=== PATIENT | male | born 1940 | race Caucasian/White ===

== ENCOUNTER 2022-07-02 17:10 | Inpatient (IN) | payer MEDICARE, SELFPAY ==
--- NOTE | ~2022-07-02 | CT_ITS ---
EXAMINATION: CTA brain carotid DATE: 07/02/2022 20:37 INDICATION: lateral gaze palsy, ?facial droop, weakness TECHNIQUE: Computed tomographic angiography (CTA) of the head was performed with 100 mL Omnipaque-350 intravenous contrast. Automated exposure control and iterative reconstruction technique were employe d. The dose-length product was 1233.20 mGy-cm. Maximum intensity projection and volume rendered 3D-re constructions were created by the technologist on a separate workstation. COMPARISON: CT brain, same date. FINDINGS: CTA HEAD: No large vessel occlusion, high flow vascular malformation, nidus or extravasation. 5 mm aneurysm at the anterior communicating artery. 14 mm homogenously enhancing peripherally calcified mass which peggy ears to displace adjacent vessels, projecting off the left sphenoid wing. Moderate stenosis of the le ft cavernous carotid. Mild stenosis in the right P2 segment. Patent cerebral veins. Hypoplastic left transverse sinus. Symmetric parenchymal enhancement. CTA NECK: Motion artifact in the neck which degrades image quality of the proximal internal carotid arteries. Aortic arch and proximal great vessels: Atherosclerotic calcifications at the visualized aortic arch and proximal great vessels. Right common carotid, carotid bifurcation, and internal carotid artery: Calcified plaque at the bifur cation.There is 0% stenosis of the proximal right internal carotid artery relative to normal distal a rtery lumen diameter (NASCET criteria). Left common carotid, carotid bifurcation, and internal carotid artery: Calcified plaque at the bifurc ation.There is 0% stenosis of the proximal left internal carotid artery relative to normal distal art puneet lumen diameter (NASCET criteria). Vertebral arteries: No significant plaque or stenosis. Other findings: None. IMPRESSION: 1. No large vessel occlusion. 2. No severe carotid or vertebral stenosis. 3. 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 4. 14 mm sphenoid wing mass, possible meningioma. Reviewed, dictated and finalized at location K.
--- NOTE | ~2022-07-02 | MR_ITS ---
EXAMINATION: MR brain/brain stem wo/w con DATE: 07/03/2022 12:42 INDICATION: Altered mental status TECHNIQUE: Magnetic resonance imaging (MRI) of the brain and brainstem was performed without and with 15 mL Multihance intravenous contrast. Sequences included sagittal and axial T1-weighted SE, axial d iffusion-weighted FS SE, axial T2*-weighted GRE, axial 3D SWAN, axial T2-weighted FLAIR, and axial T2 -weighted FSE. Postcontrast axial and coronal T1-weighted SE was obtained. Apparent diffusion coeffic ient (ADC) maps were created. COMPARISON: None. FINDINGS: There are no areas of restricted diffusion to suggest acute infarction. No intracranial hemorrhage. T here is a 1.5 x 1.2 x 0.8 cm pleural-based mass along the greater wing of the left sphenoid along the junction of the anterior and middle cranial fossae consistent with a meningioma. No other masses or other abnormally enhancing lesions identified. There are scattered areas of nonspecific increased T2- weighted signal intensity in the cerebral white matter, predominantly involving the deep and perivent ricular white matter which is within normal limits for age and likely sequela of chronic small vessel ischemic disease. There are no intraparenchymal signal abnormalities seen on the other pulse sequenc es. Symmetric prominence of the sulci and ventricles consistent with moderate age-appropriate diffuse cerebral volume loss. Normal anatomic variant cavum septum pellucidum. There are no abnormal extra-a xial fluid collections. Flow voids are seen in the cerebral arteries on the T2-weighted sequences con sistent with their expected patency. Small left mastoid effusion. Changes of bilateral intraocular le ns replacement. Mild to moderate mucosal thickening the paranasal sinuses. IMPRESSION: 1. No acute intracranial process. 2. 1.5 x 1.2 x 0.8 cm enhancing extra-axial dural-based mass consistent with a meningioma at the junc tion of the left anterior and middle cranial fossae. 3. Age-related changes including diffuse moderate age-appropriate volume loss and mild scattered nons pecific white matter T2 hyperintensity consistent with chronic small vessel ischemic disease. 4. Sinus disease and small left mastoid effusion. Reviewed, dictated and finalized at location A. IMPRESSION: 1. No acute intracranial process. 2. 1.5 x 1.2 x 0.8 cm enhancing extra-axial dural-based mass consistent with a meningioma at the junction of the left anterior and middle cranial fossae. 3. Age-related changes including diffuse moderate age-appropriate volume loss a nd mild scattered nonspecific white matter T2 hyperintensity consistent with ch ronic small vessel ischemic disease. 4. Sinus disease and small left mastoid effusion.
--- NOTE | ~2022-07-02 | CT_ITS ---
EXAMINATION: CT chest abdomen pelvis w con DATE: 07/02/2022 18:43 INDICATION: weakness, ams, chest and abd pain . TECHNIQUE: Computed tomography (CT) of the chest, abdomen, and pelvis was performed with 100 mL Omnip aque-350 intravenous contrast. Automated exposure control and iterative reconstruction technique were employed. The dose-length product was 896.04 mGy-cm. COMPARISON: None FINDINGS: CHEST: Thoracic aorta: Moderate arch calcification. Mild ectasia. Lung parenchyma and airways: Lungs and airways are clear. Thoracic inlet, axillae and chest wall: No thyroid or soft tissue mass. No axillary lymphadenopathy. Mediastinum: No mass or lymphadenopathy. Calcified left hilar nodes. Heart and pericardium: Normal heart size. No pericardial effusion. Coronary artery calcifications: Moderate. Pleura: No effusion or mass. Thoracic bones: No acute osseous finding in the chest. ABDOMEN/PELVIS: Liver: Normal. Biliary/Gallbladder: Gallbladder is normal. No bile duct dilation. Pancreas: No mass or duct dilation. Spleen: Granulomatous calcifications. Adrenals:No mass. Kidneys: Bilateral hypodensities, too small to characterize but most likely represent cysts. Punctate left lower pole nonobstructing calculi. No suspicious mass, obstructing stone, or hydronephrosis. GI tract: Esophageal and antral wall edema. No small or large bowel dilation. Normal appendix. Mesentery/Peritoneum: No ascites, mass, or free air. Retroperitoneum: No mass Atherosclerotic abdominal aortic and/or arterial calcifications. Pelvis: Bladder wall thickening and a incompletely distended urinary bladder. Prostate enlargement wi th calcifications. Soft Tissues: Soft tissues and body wall unremarkable. Abdominopelvic bones: No acute osseous finding in the abdomen/pelvis. IMPRESSION: Esophagitis/gastritis. Bladder wall thickening may be secondary to inadequate distention versus outle t compromise or cystitis. No other acute finding in the chest, abdomen, or pelvis. Reviewed, dictated and finalized at location K. IMPRESSION: Esophagitis/gastritis. Bladder wall thickening may be secondary to inadequate d istention versus outlet compromise or cystitis. No other acute finding in the c hest, abdomen, or pelvis.
--- NOTE | ~2022-07-02 | XR_ITS ---
XR chest 1V portable 07/06/2022 09:22 Indication: Pneumonia Procedure: AP portable chest Comparison: 07/05/2022 Findings: Left basilar atelectasis. Heart size normal. Right lung clear. No significant effusion or p neumothorax. No acute osseous abnormality. Impression: 1: Left basilar atelectasis. Reviewed, dictated and finalized at location A. Impression: 1: Left basilar atelectasis.
--- NOTE | ~2022-07-02 | CT_ITS ---
EXAMINATION: CT brain wo con DATE: 07/02/2022 17:41 INDICATION: weakness, confusion . TECHNIQUE: Computed tomography (CT) of the head was performed without intravenous contrast. The mA wa s adjusted according to patient size. Iterative reconstruction technique was employed. The dose-lengt h product was 681.00 mGy-cm. COMPARISON: None. FINDINGS: No acute intracranial hemorrhage or extra-axial fluid collection. No hydrocephalus, mass, or herniation. No acute ischemic infarct. Unremarkable dural venous sinus attenuation. No acute osseous abnormality. Trace left mastoid fluid, left frontal, bilateral maxillary and ethmoid mucosal thickening, the remai vitaliy aerated spaces are clear. Mild atrophy and chronic white matter change. Atherosclerotic intracranial calcification. Bilateral l ens replacements. Focal area of sclerosis with adjacent calcification/ossification and 13 mm rim calc ified mass projecting off the left sphenoid wing, bordering between the anterior and middle left cran ial fossae. IMPRESSION: No acute intracranial process. 13 mm rim calcified mass extending off of the left sphenoid wing, like ly associated with adjacent sclerosis, recommend comparison to outside studies if available. Otherwis e consider nonemergent MRI of the brain with and without contrast for further evaluation. Reviewed, dictated and finalized at location K. IMPRESSION: No acute intracranial process. 13 mm rim calcified mass extending off of the le ft sphenoid wing, likely associated with adjacent sclerosis, recommend comparis on to outside studies if available. Otherwise consider nonemergent MRI of the b rain with and without contrast for further evaluation.
--- NOTE | ~2022-07-02 | XR_ITS ---
EXAMINATION: XR chest 1V portable DATE: 07/04/2022 10:18 INDICATION: COVID positive. Shortness of breath. TECHNIQUE: frontal view of the chest was obtained. COMPARISON: Chest radiograph and CT dated 07/02/2022 FINDINGS: New retrocardiac airspace opacity left lower lung zone. Right lung remains clear. No pulmonary edema, pleural effusion or pneumothorax. Calcified left hilar lymph nodes consistent with old granulomatous disease. The cardiomediastinal silhouette is normal. Mild thoracic dextrocurvature. IMPRESSION: 1. New retrocardiac opacities in the left lower lung zone which could represent atelectasis, aspirati on or pneumonia. Reviewed, dictated and finalized at location A. IMPRESSION: 1. New retrocardiac opacities in the left lower lung zone which could represent atelectasis, aspiration or pneumonia.
--- NOTE | ~2022-07-02 | XR_ITS ---
EXAMINATION: XR chest 1V portable Exam Date/Time: 07/02/2022 17:50 CDT HISTORY: weakness, ams, FEVER Comparison: None. RESULT: Lines, tubes, and devices: None. Lungs and pleura: Senescent change, otherwise clear. Cardiomediastinal silhouette: Hilar node and aortic arch calcifications, otherwise unremarkable. Other: No acute osseous or upper abdominal finding. IMPRESSION: No acute cardiopulmonary process. Reviewed, dictated and finalized at location K.
--- NOTE | ~2022-07-02 | XR_ITS ---
Portable chest x-ray Comparison: 07/04/2022 Clinical History: Pneumonia Findings: There is mild bibasilar hazy airspace disease. No pleural effusion or pneumothorax. Cardi omediastinal silhouette is stable. Bones and soft tissues are unremarkable. Impression: Hazy bibasilar airspace disease. Correlate for pulmonary edema/atelectasis versus pneumonia. Reviewed, dictated and finalized at [facility]. Impression: Hazy bibasilar airspace disease. Correlate for pulmonary edema/atelectasis vers us pneumonia.
[2022-07-02 17:10] VITALS: BP 148/74; PULSE 91; RESP 11; TEMP 37.4; O2SAT 100
--- NOTE | 2022-07-02 17:16 | ECG_ITS ---
Measurements Intervals [place] Rate: 90 P: 50 RI: 156 QRS: -12 QRSD: 97 T: 73 QT: 373 QTc: 457 Interpretive Statements SINUS RHYTHM ATRIAL PREMATURE COMPLEX BORDERLINE ST-T WAVE ABNORMALITY- ANT/HIGH LAT LEADS BASELINE ARTIFACT- I, III, AVR, AVL, AVF, V1-V3 BORDERLINE ECG NO PREVIOUS ECG AVAILABLE FOR COMPARISON Electronically Signed On 07-03-2022 6:45:21 CDT by Juan Alberto Head D.O.
--- NOTE | 2022-07-02 17:20 | ED.WEAKNESS ---
HPI - Weakness General Chief complaint: Weakness <Kimberley Clayton PA-C - Last Filed: 07/03/22 13:22> Stated complaint: weak <Kimberley Clayton PA-C - Last Filed: 07/03/22 13:22> Time Seen by Provider: 07/02/22 17:11 <Kimberley Clayton PA-C - Last Filed: 07/03/22 13:22> History of Present Illness HPI Narrative: Patient is a 82-year-old male with history of Alzheimer's dementia here from home for evaluation due to weakness and confusion. History obtained from EMS given patient's baseline mental status. According to patient's , he has been more confused than usual, not eating or drinking, complaining of pain all over . Patient's only complaint is chest pain and right lower quadrant abdominal pain. Spoke with patient's . She states that she was awoke by him standing in the hallway at 3AM and found that he urinated on himself. She helped him to the bathroom and assisted him to urinate but states he urinated on the toilet instead. This is atypical for him. They went back to bed and she gave him his morning medicines, but she states patient has been sleeping nearly all day today. When she woke him up this afternoon she noticed he urinated on himself in bed again, he was weaker than usual and he was unable to stand up. He felt warm and was complaining of pain all over, particularly in his abdomen. Less alert than usual. This prompted her to call an ambulance. <Kimberley Clayton PA-C - Last Filed: 07/03/22 13:22> Patient is a 82-year-old male with history of Alzheimer's dementia here from home for evaluation due to weakness and confusion. History obtained from EMS given patient's baseline mental status. According to patient's , he has been more confused than usual, not eating or drinking, complaining of pain all over . Patient's only complaint is chest pain and right lower quadrant abdominal pain. Spoke with patient's . She states that she was woke up by him standing in the hallway at 3AM and found that he urinated on himself. She helped him to the bathroom and assisted him to urinate but states he urinated on the toilet instead. This is atypical for him. They went back to bed and she gave him his morning medicines, but she states patient has been sleeping nearly all day today. When she woke him up this afternoon she noticed he urinated on himself in bed again, he was weaker than usual and he was unable to stand up. He felt warm and was complaining of pain all over, particularly in his abdomen. Less alert than usual. This prompted her to call an ambulance. <Get Soliman MD - Last Filed: 07/12/22 15:59> Related Data Home medications: Home Medications Medication Instructions Recorded Confirmed brimonidine 0.2 % eye drops 1 drp EACH EYE BID 07/03/22 07/03/22 finasteride 5 mg tablet 5 mg PO DAILY 07/03/22 07/03/22 latanoprost 0.005 % eye drops 1 drp LEFT EYE HS 07/03/22 07/03/22 lisinopril 40 mg tablet 40 mg PO DAILY 07/03/22 07/03/22 quetiapine 25 mg tablet 25 mg PO DAILY 07/03/22 07/03/22 rivastigmine 13.3 mg/24 hour 1 patch topical DAILY 07/03/22 07/03/22 transdermal patch simvastatin 20 mg tablet 60 mg PO HS 07/03/22 07/03/22 timolol maleate 0.5 % eye drops 1 drp LEFT EYE BID 07/03/22 07/03/22 tramadol 50 mg tablet 50 mg PO TID PRN Pain, Moderate 07/03/22 07/03/22 <Kimberley Clayton PA-C - Last Filed: 07/03/22 13:22> Allergies/Adverse reactions: Allergies Allergy/AdvReac Type Severity Reaction Status Date / Time No Known Allergies Allergy Verified 07/02/22 18:26 <Kimberley Clayton PA-C - Last Filed: 07/03/22 13:22> Review of Systems Review of Systems: Gen.: Reports weakness Eyes: Denies eye pain or visual change ENT: Denies congestion Respiratory: Denies shortness of breath or cough CV: Reports chest pain GI: Reports abdominal pain. Denies nausea, emesis or diarrhea denies burning, urgency, frequency or hematuria Musculoskeletal: Denies
[2022-07-02 17:33] LABS: Basophils Percent Auto 0.4 % (0.2-1.2); Eosinophils Percent Auto 0.4 % (0-4.4); Hematocrit 38.4 % (42.0-52.0); Immature Granulocyte Absolute 0.02 K/mm3 (0.00-0.031); Immature Granulocyte Percent A 0.3 % (0-0.5); Lymphocytes Absolute Auto 0.51 K/mm3 (0.9-3.2); Lymphocytes Percent Auto 7.3 % (18.3-44.2); Mean Corpuscular HGB Conc 33.9 g/dl (32-36); Mean Corpuscular Hemoglobin 31.2 pg (26-34); Mean Corpuscular Volume 92.1 fl (80-100); Mean Platelet Volume 9.8 fl (7.4-10.4); Monocytes Absolute Auto 0.7 K/mm3 (0.1-0.6); Monocytes Percent Auto 10.2 % (2.6-8.5); Neutrophils Absolute Auto 5.7 K/mm3 (1.3-6.7); Neutrophils Percent Auto 81.4 % (45.5-73.1); Platelet Count Result 143 k/mm3 (150-375); Red Blood Count 4.17 M/mm3 (4.6-6.20); Red Cell Distribution Width 13.1 % (11.5-14.5)
[2022-07-02 17:42] LABS: Lipase 222 U/L (23-300)
[2022-07-02 17:55] LABS: NT Pro B Type Natriuretic Pept 496 pg/mL (19.9-100); Troponin I < 0.012 ng/mL (0.000-0.034)
[2022-07-02 18:07] LABS: Lactic Acid Reflex 1.8 mmol/L (0.7-2.0)
[2022-07-02 18:24] LABS: Alanine Aminotransferase 19 U/L (6-50); Albumin Level 4.5 g/dL (3.5-5.1); Alkaline Phosphatase 71 U/L (38-126); Anion Gap 8 mmol/L (8-16); Aspartate Amino Transferase 24 U/L (17-59); Bilirubin,Total 0.9 mg/dL (0.2-1.3); Blood Urea Nitrogen 17 mg/dL (9-20); Calcium 8.8 mg/dL (8.4-10.2); Carbon Dioxide 31 mmol/L (22-30); Chloride 99 mmol/L (98-107); Estimated Glomerular Filt Rate > 60; Glucose 173 mg/dL (65-110); Magnesium 2.1 mg/dL (1.6-2.3); Potassium 4.3 mmol/L (3.4-5.0); Sodium 138 mmol/L (137-145)
[2022-07-02 18:41] LABS: Appearance Urine Clear (Clear); Bacteria Urine None Seen /hpf; Bilirubin Urine Negative (Negative); Blood Urine Negative (Negative); Color Urine Yellow (Yellow); Glucose Urine UA Negative (Negative); Hyaline Casts Urine Present /lpf; Ketones Urine 1+ mg/dL (Negative); Leukocyte Esterase Ur Negative LEU/UL (Negative); Nitrate Urine Negative (Negative); Non Pathogenic Casts 0-2; Protein Urine 2+ mg/dL (Negative); RBC Urine 0-2 /hpf (0-2); Specific Grav Ur 1.024 (1.001-1.035); Squamous Epithelial Cell Urine None seen /hpf (Few); pH Urine 6.5 (5.0-9.0)
[2022-07-02 18:51] LABS: Add Urine Microscopic? YES
[2022-07-02] MEDS: SODIUM CHLORIDE 0.9% IV 1,000 ML 999 ML IV CONT (19:13)
[2022-07-02] MEDS: FAMOTIDINE 20 MG/2 ML VIAL IV PUSH (19:13)
[2022-07-02 20:57] LABS: Ammonia < 9 umol/L (9-30)
[2022-07-02 21:29] LABS: Influenza A QL RT-PCR Negative (Negative)
[2022-07-03 06:47] VITALS: BMI 24.3
--- NOTE | 2022-07-03 06:48 | ADMGEN ---
This patient, Gómez Oliveira, was admitted to Medical Room 345-01. Patient/family oriented to hospital policies and general routines including ID bracelet, bed and alarms, visiting hours, pain management, procedures, bathroom and other care routines, personal items, smoking policy, room service/diet, and visiting hours. Information on how to activate the Rapid Response Team has been discussed. Patient/Family are encouraged to report perceived risks to care and to ask questions if they do not understand what they are told or what they should do.
--- NOTE | 2022-07-03 06:56 | PC.NURSE ---
Paper documentation exists on this patient due to [employer] downtime on 07/02/22 2200 from to [07/03/22 0600] .
--- NOTE | 2022-07-03 09:56 | PM.IMHP ---
H&P: HPI History of Present Illness Date/Time: 07/03/22 09:56 Chief Complaint: weakness and confusion Narrative: Date of service: 07/03/2022 Gómez Oliveira is an 82-year-old male with a history dementia, hyperlipidemia, and neuropathy who presented to the emergency department on 07/02/2022 via EMS from home. Upon presentation to the ED, patient's O2 sats were 100% on room air, additional vital signs were stable, CBC and BMP unremarkable, troponin negative, UA not concerning for infection, and COVID PCR was positive. The patient is a poor historian and is not able to provide any history. Patient does not verbally respond to any questions or follow simple commands. I spoke with the patient's /POA, Chapis, via phone who provided the following history. Chapis states that the patient has good days and bad days and his mental status fluctuates pretty significantly in between. at baseline, he typically needs help with toileting, sometimes needs help with dressing, frequently wakes up at night, and his speech is unclear. Yesterday, the patient woke up around 330 in the morning and Chapis heard him from pulling in the bathroom. She went to help him to find that he had urinated all over the floor which she states is somewhat atypical for him. They later got up and he was sitting in his recliner, she felt that he was more fatigued than typical and was frequently falling asleep in the chair. She went to wake him to given his afternoon meds and found that he had urinated on himself again. She was attempting to clean him up in the recliner and she noticed that he seemed to be in pain when she was moving him. He was last arousable and she discussed with her son and daughter who advised that she call 911. When they were in the waiting room of the emergency department, she noticed that he developed a cough and seemed to have drainage from his throat. She felt that overall he was more weak. She denies any known sick contacts, however she states that last week she went to the eye doctor and sat in a busy waiting room were multiple people were coughing and sniffling, and questions whether he could have gotten COVID from her, however she has not been ill. Patient did complete his COVID vaccine and 1 booster. on presentation, his head CT showed no acute findings, however did reveal calcified mass of left sphenoid wing, head/neck CTA showed no large inclusion or stenosis, and CT of the abdomen/pelvis showed esophagitis/gastritis and bladder wall thickening. CXR with no acute cardiopulmonary process inpatient is maintaining adequate oxygen saturations on room air. Review of Systems Review of Systems: ROS unobtainable: Yes unobtainable due to mental status PMFSH Past Medical History Medical History (Updated 07/03/22 @ 10:13 by Xiao Thomason PA-C) Dementia with behavioral disturbance Hyperlipidemia Neuropathy Social History Social History (Updated 07/03/22 @ 10:07 by Xiao Thomason PA-C) Social History: patient lives at home with his , Chapis, who is his primary mixing tumbler operator and surrogate decision maker. His PCP is Dr. Alvino Bey. He is a DNR Smoking status: Never smoker Alcohol intake: never Substance use: never Living arrangements: with family Meds Home Medications and Allergies Allergies Allergy/AdvReac Type Severity Reaction Status Date / Time No Known Allergies Allergy Verified 07/02/22 18:26 Vital Signs Vital Signs - 24 hr 07/02/22 17:10 Temperature 99.3 F Pulse Rate 91 Respiratory Rate 11 L Blood Pressure 148/74 H Pulse Oximetry 100 Oxygen Delivery Room Air Exam Narrative: General: chronically ill-appearing 82-year-old male, supine in bed, NARD Neuro: drowsy, opens eyes when his name is called, responds hello but otherwise does not answer any questions or provide any verbal responses, unable to follow simple commands, no focal neuro deficits noted HEENMT: normocephalic, atraumatic
--- NOTE | 2022-07-03 11:05 | WPDNEURCNPN ---
Assessment and Plan Assessment and plan (1) Dementia with behavioral disturbance: Code(s): F03.918 - Unspecified dementia, unspecified severity, with other behavioral disturbance Status: Acute (2) Altered mental status: Code(s): R41.82 - Altered mental status, unspecified Status: Acute (3) Generalized weakness: Code(s): R53.1 - Weakness Status: Acute (4) COVID-19: Code(s): U07.1 - COVID-19 Status: Acute Plan Mr. Oliveira is an 82 year old male with a history of dementia presenting with worsening cognition and generalized weakness in the setting of COVID infection. Suspect that acute deterioration is secondary to viral illness. - MRI brain has been ordered - TSH, B12, and folate levels are pending Consult date: 07/03/22 Reason for consult: Encephalopathy HPI: Gómez Oliveira is a 82 year old male with a history of dementia, hyperlipidemia, neuropathy who presented due to change in mental status. Patient's reported that he had two episodes of urinary incontinence, which is unusual for him and has overall been more fatigued than usual. At baseline, he requires assistance with most ADLs and has fluctuation in his mental status. Due to concerns for worsening cognition and generalized weakness, he was taken to [facility] where work-up was significant for COVID positive status. Patient's did report that he had cough and drainage as well. He had a CT head done in the ED which showed calcified mass in the left sphenoid wing. CTA brain/carotid was unrevealing. CT CAP showed esophagitis/gastritis and bladder wall thickening. UA was not concerning for UTI, but urine culture is pending. He received a dose of Rocephin given the bladder wall thickening on the CT scan. Patient takes Namenda, rivastigmine, and Seroquel at home. MRI brain has been ordered as well as TSH/Folate/B12 levels. Review of Systems Review of Systems: ROS unobtainable: Yes unobtainable due to mental status PMFSH Past Medical History Medical History Dementia with behavioral disturbance Hyperlipidemia Neuropathy Social History Social History Social History: patient lives at home with his , Chapis, who is his primary relief manager and surrogate decision maker. His PCP is Dr. Alvino Bey. He is a DNR Smoking status: Never smoker Alcohol intake: never Substance use: never Living arrangements: with family Meds Home Medications and Allergies Home Medications Medication Instructions Recorded Confirmed Type brimonidine 0.2 % eye drops 1 drp EACH EYE BID 07/03/22 07/03/22 History finasteride 5 mg tablet 5 mg PO DAILY 07/03/22 07/03/22 History latanoprost 0.005 % eye drops 1 drp LEFT EYE HS 07/03/22 07/03/22 History lisinopril 40 mg tablet 40 mg PO DAILY 07/03/22 07/03/22 History quetiapine 25 mg tablet 25 mg PO DAILY 07/03/22 07/03/22 History rivastigmine 13.3 mg/24 hour 1 patch topical DAILY 07/03/22 07/03/22 History transdermal patch simvastatin 20 mg tablet 60 mg PO HS 07/03/22 07/03/22 History timolol maleate 0.5 % eye drops 1 drp LEFT EYE BID 07/03/22 07/03/22 History tramadol 50 mg tablet 50 mg PO TID PRN Pain, Moderate 07/03/22 07/03/22 History Allergies Allergy/AdvReac Type Severity Reaction Status Date / Time No Known Allergies Allergy Verified 07/02/22 18:26 Vital Signs Vital Signs - 24 hr 07/02/22 17:10 Temperature 37.4 C Pulse Rate 91 Respiratory Rate 11 L Blood Pressure 148/74 H Pulse Oximetry 100 Oxygen Delivery Room Air Exam Const: General: comfortable and no acute distress HENMT: Mouth: Yes moist mucous membranes Eyes: EOM: EOMs intact bilaterally Resp: Effort & Inspection: normal respiratory effort Skin: General skin exam: normal color Neuro: Other: AOx0, no comprehensible speech. Opened eyes only after noxious stimulation, Pupils e
[2022-07-03 11:14] LABS: Influenza B QL RT-PCR Negative (Negative); SARS-CoV-2 RNA PCR Positive (Negative)
[2022-07-03 12:35] LABS: Thyroid Stimulating Hormone Reflex 0.481 uIU/mL (0.465-4.68)
[2022-07-03] MEDS: PANTOPRAZOLE 40 MG TABLET PO (13:15)
[2022-07-03 13:23] LABS: Folic Acid 15.5 ng/mL (2.76->20)
[2022-07-03 14:00] VITALS: BP 134/71; PULSE 77; RESP 22; TEMP 37.2; O2SAT 95
--- NOTE | 2022-07-03 16:18 | PCPTNOTE ---
Attempted PT evaluation, pt unable to follow commands to/unarousable to safely participate in skilled therapy. RN aware. Will follow.
[2022-07-03] MEDS: TIMOLOL MALEATE 0.5% OP SOLN 5 ML BOTTLE 1 DROP LEFT EYE (17:14)
[2022-07-03] MEDS: BRIMONIDINE TARTRATE 0.2% OP SOLN 5 ML BTL 1 DROP EACH EYE (17:14)
[2022-07-03] MEDS: LATANOPROST 0.005% OP SOLN 2.5 ML BTL 1 DROP LEFT EYE (20:46)
[2022-07-03 20:56] VITALS: O2SAT 88
[2022-07-03 21:47] VITALS: BP 127/58; PULSE 99; RESP 16; TEMP 36.4; O2SAT 93
[2022-07-04] VITALS (11 sets, daily range): BP systolic 88–119; BP diastolic 41–77; PULSE 59–181; RESP 16–41; TEMP 36.1–36.6; O2SAT 85–96
[2022-07-04 06:19] LABS: Basophils Percent Auto 0.4 % (0.2-1.2); Hematocrit 37.3 % (42.0-52.0); Hemoglobin 13.1 g/dL (14.0-18.0); Immature Granulocyte Absolute 0.01 K/mm3 (0.00-0.031); Immature Granulocyte Percent A 0.1 % (0-0.5); Lymphocytes Absolute Auto 0.48 K/mm3 (0.9-3.2); Lymphocytes Percent Auto 6.5 % (18.3-44.2); Mean Corpuscular HGB Conc 35.1 g/dl (32-36); Mean Corpuscular Hemoglobin 30.9 pg (26-34); Mean Platelet Volume 9.9 fl (7.4-10.4); Monocytes Absolute Auto 0.5 K/mm3 (0.1-0.6); Neutrophils Absolute Auto 6.3 K/mm3 (1.3-6.7); Platelet Count Result 149 k/mm3 (150-375); Red Blood Count 4.24 M/mm3 (4.6-6.20); White Blood Count 7.4 K/mm3 (4.5-10.0)
[2022-07-04 06:31] LABS: Alanine Aminotransferase 19 U/L (6-50); Alkaline Phosphatase 55 U/L (38-126); Anion Gap 11 mmol/L (8-16); Aspartate Amino Transferase 28 U/L (17-59); Blood Urea Nitrogen 23 mg/dL (9-20); CRP 7.5 mg/dL (<1.0); Calcium 8.4 mg/dL (8.4-10.2); Carbon Dioxide 25 mmol/L (22-30); Chloride 100 mmol/L (98-107); Estimated CRCL calculation 48 ml/min; Estimated Glomerular Filt Rate > 60; Glucose 254 mg/dL (65-110); Potassium 3.4 mmol/L (3.4-5.0); Sodium 136 mmol/L (137-145)
[2022-07-04] MEDS: ENOXAPARIN 40 MG/0.4 ML SYRINGE SUB-Q (09:24)
[2022-07-04] MEDS: BRIMONIDINE TARTRATE 0.2% OP SOLN 5 ML BTL 1 DROP EACH EYE ×2 (09:25→17:50)
--- NOTE | 2022-07-04 09:35 | PC.NURSE ---
Pt less responsive this morning; only responding to pain. Xiao notified. morning PO meds on hold as pt is not alert to safely take meds.
[2022-07-04] MEDS: TIMOLOL MALEATE 0.5% OP SOLN 5 ML BOTTLE 1 DROP LEFT EYE ×2 (09:39→17:50)
[2022-07-04] MEDS: IPRATROPIUM BR 0.02% INH SOLN 0.5 MG/2.5 ML VIAL INHALATION (10:10)
--- NOTE | 2022-07-04 10:20 | ECG_ITS ---
Measurements Intervals [place] Rate: 87 P: DE: 0 QRS: -19 QRSD: 91 T: 97 QT: 377 QTc: 456 Interpretive Statements SINUS RHYTHM ATRIAL COUPLET AND ATRIAL PREMATURE COMPLEXES NONSPECIFIC ST & T-WAVE ABNORMALITY- DIFFUSE LEADS BASELINE WANDER- II, V4-V6 BORDERLINE ECG COMPARED TO ECG 07/02/2022 17:18:07 NO SIGNIFICANT CHANGES Electronically Signed On 07-04-2022 11:22:34 CDT by Juan Alberto Head D.O.
--- NOTE | 2022-07-04 10:39 | P.PNIM_ITS ---
Progress Note: A&P Assessment and Plan (1) Acute respiratory failure with hypoxia: Code(s): J96.01 - Acute respiratory failure with hypoxia Status: Acute Assessment and Plan: Patient with increased work of breathing today, decline in O2 sats to 85% * Initially required 2-4 L supplemental O2 * Worsening respiratory status this morning with need for 6 L supplemental O2 per high flow nasal cannula * ABG pending * Repeat CXR shows new retrocardiac opacities in left lower lung may represent atelectasis vs aspiration * Given pts cognitive status, he is at risk for aspiration. Will begin IV Zosyn. NPO at this time. Implement aspiration precautions * IV solumedrol 125 mg x1 * IV lasix 40 mg x1 * Albuterol and ipratropium nebs q6h * Transfer to IMU * Monitor O2 sats closely. Goal O2 sats 90% * Discussed condition with pts . Reiterates desire for DNR status and not agreeable to intubation should this be required. Agreeable to airvo or bipap if required (2) COVID-19: Code(s): U07.1 - COVID-19 Status: Acute Assessment and Plan: COVID-PCR positive on 07/02/22 * Initial CXR with no acute findings, repeat today shows new opacities * Given increased oxygen demand, will begin dexamethasone and remdesivir. Monitor LFTs. Hold dexamethasone today as pt has recieved IV solumedrol 125 mg * completed COVID vaccine and 1 booster * no known COVID 19 positive contacts * continue isolation precautions * supportive care to include bronchodilators, antipyretics, incentive spirometry (will require assistance with this) (3) Altered mental status: Code(s): R41.82 - Altered mental status, unspecified Status: Acute Assessment and Plan: Patient with increased confusion from baseline * patient's notes significant fluctuation in patient's mental status from day-to-day, however states that current behavior is atypical for him * head CT and CTA of head and neck with no acute findings. brain MRI with no acute intracranial process * likely related to acute viral illness * UA not overly concerning for infection, however with urinary frequency, incontinence and bladder wall thickening concerning for possible cystitis on imaging, will administer 1 dose of IV ceftriaxone while awaiting urine culture results * B12, folate, and TSH within normal limits * patient afebrile, no leukocytosis * monitor mental status closely * appreciate neurology recommendations (4) Dementia with behavioral disturbance: Code(s): F03.918 - Unspecified dementia, unspecified severity, with other behavioral disturbance Status: Acute Assessment and Plan: with waxing and waning mental status * patient maintained on memantine, rivastigmine, and Seroquel * seems that patient has been requiring more and more care at home. His is the primary licensing engineer but patient may be at a point where he is requiring more assistance than what can be provided. May need to consider home health versus memory care placement options. Appreciate care coordination recommendations (5) Meningioma: Code(s): D32.9 - Benign neoplasm of meninges, unspecified Status: Acute Assessment and Plan: CTA showed 14 mm sphenoid wing mass ( also evident on head CT), most consistent with meningioma * brain MRI with 1.5 x 1.2 . 0.8 cm exta axial dural based mass consistent with meningion at junction of left anterior and middle cranial fossa * appreciate Neurology recommendations (6) Generalized weakness: Code(s): R53.1 - Weakness
--- NOTE | 2022-07-04 10:39 | PM.IMPN ---
Progress Note: A&P Assessment and Plan (1) Acute respiratory failure with hypoxia: Code(s): J96.01 - Acute respiratory failure with hypoxia Status: Acute Assessment and Plan: Patient with increased work of breathing today, decline in O2 sats to 85% Initially required 2-4 L supplemental O2 Worsening respiratory status this morning with need for 6 L supplemental O2 per high flow nasal cannula ABG pending Repeat CXR shows new retrocardiac opacities in left lower lung may represent atelectasis vs aspiration Given pts cognitive status, he is at risk for aspiration. Will begin IV Zosyn. NPO at this time. Implement aspiration precautions IV solumedrol 125 mg x1 IV lasix 40 mg x1 Albuterol and ipratropium nebs q6h Transfer to IMU Monitor O2 sats closely. Goal O2 sats 90% Discussed condition with pts . Reiterates desire for DNR status and not agreeable to intubation should this be required. Agreeable to airvo or bipap if required (2) COVID-19: Code(s): U07.1 - COVID-19 Status: Acute Assessment and Plan: COVID-PCR positive on 07/02/22 Initial CXR with no acute findings, repeat today shows new opacities Given increased oxygen demand, will begin dexamethasone and remdesivir. Monitor LFTs. Hold dexamethasone today as pt has recieved IV solumedrol 125 mg completed COVID vaccine and 1 booster no known COVID 19 positive contacts continue isolation precautions supportive care to include bronchodilators, antipyretics, incentive spirometry (will require assistance with this) (3) Altered mental status: Code(s): R41.82 - Altered mental status, unspecified Status: Acute Assessment and Plan: Patient with increased confusion from baseline patient's notes significant fluctuation in patient's mental status from day-to-day, however states that current behavior is atypical for him head CT and CTA of head and neck with no acute findings. brain MRI with no acute intracranial process likely related to acute viral illness UA not overly concerning for infection, however with urinary frequency, incontinence and bladder wall thickening concerning for possible cystitis on imaging, will administer 1 dose of IV ceftriaxone while awaiting urine culture results B12, folate, and TSH within normal limits patient afebrile, no leukocytosis monitor mental status closely appreciate neurology recommendations (4) Dementia with behavioral disturbance: Code(s): F03.918 - Unspecified dementia, unspecified severity, with other behavioral disturbance Status: Acute Assessment and Plan: with waxing and waning mental status patient maintained on memantine, rivastigmine, and Seroquel seems that patient has been requiring more and more care at home. His is the primary molded goods operator but patient may be at a point where he is requiring more assistance than what can be provided. May need to consider home health versus memory care placement options. Appreciate care coordination recommendations (5) Meningioma: Code(s): D32.9 - Benign neoplasm of meninges, unspecified Status: Acute Assessment and Plan: CTA showed 14 mm sphenoid wing mass ( also evident on head CT), most consistent with meningioma brain MRI with 1.5 x 1.2 . 0.8 cm exta axial dural based mass consistent with meningion at junction of left anterior and middle cranial fossa appreciate Neurology recommendations (6) Generalized weakness: Code(s): R53.1 - Weakness Status: Acute Assessment and Plan: patient with decreased mobility and increased weakness per suspect acute on chronic, likely related to overall physical deconditioning worsened by acute viral illness appreciate PT/ OT eval when pt is medically stable (7) Esophagitis: Code(s): K20.90 - Esophagitis, unspecified without bleeding Status: Acute Assessment and Plan: C
[2022-07-04] MEDS: ALBUTEROL SULFATE NEB 2.5 MG/3 ML INH INHALATION (10:40)
[2022-07-04 10:43] LABS: Alveolar/Arterial O2 Gradient 182.3 mmHg; Base Excess ABG -1.7 mEq/l (+/-2.0); Fractional Inspired Oxygen 36 %; HCO3 ABG 19.4 mEq/l (22.0-26.0); Oxygen Content ABG 16.2 %vol (16.0-22.0); PCO2 ABG 24.3 mmHg (35.0-45.0); PO2 FiO2 Ratio Arterial Blood 1.28 %; Total Hemoglobin 13.8 g/dL (12.0-18.0)
[2022-07-04 10:49] LABS: Oxygen Saturation ABG 87.5 % (95.0-100.0); Oxyhemoglobin 83.6 % THb (90.0-100.0); PO2 ABG 46.2 mmHg (80.0-100.0)
[2022-07-04 10:50] LABS: Device NASAL CANNULA; Modified Allen's Test Pass; Site Drawn RIGHT RADIAL
[2022-07-04 10:50] LABS: Alanine Aminotransferase 19 U/L (6-50); Estimated CRCL calculation 35 ml/min; Estimated Glomerular Filt Rate 45
[2022-07-04] MEDS: FUROSEMIDE INJ 40 MG/4 ML VIAL IV PUSH (10:51)
[2022-07-04] MEDS: methylPREDNISolone SOD SUCC 125 MG VIAL IV PUSH (10:51)
[2022-07-04 10:55] LABS: Hemoglobin A1C 6.3 % (<5.7)
[2022-07-04 10:56] LABS: INR 1.2; Prothrombin Time 15.6 Seconds (11.1-14.7)
[2022-07-04] MEDS: REMDESIVIR 200 MG/NS 250 ML 200 MG/250 ML BAG 250 MG IVPB (10:58)
[2022-07-04] MEDS: PIPERACILLN/TAZ 3.375GM/NS50ML 3.375 GM/50 ML BAG IVPB ×3 (12:59→23:51)
[2022-07-04] MEDS: MORPHINE SULFATE (*CRX) 2 MG/ML INJ IV PUSH ×2 (15:50→20:45)
[2022-07-04] MEDS: LORazepam INJ (*CRX) 2 MG/ML VIAL IV PUSH (17:50)
[2022-07-04] MEDS: LATANOPROST 0.005% OP SOLN 2.5 ML BTL 1 DROP LEFT EYE (20:53)
[2022-07-05 04:55] VITALS: BP 119/79; PULSE 66; RESP 14; TEMP 36.4; O2SAT 90
[2022-07-05] MEDS: PIPERACILLN/TAZ 3.375GM/NS50ML 3.375 GM/50 ML BAG IVPB ×4 (05:57→23:52)
[2022-07-05 08:30] VITALS: PULSE 66; RESP 14; O2SAT 90
[2022-07-05] MEDS: ENOXAPARIN 40 MG/0.4 ML SYRINGE SUB-Q (08:36)
[2022-07-05] MEDS: TIMOLOL MALEATE 0.5% OP SOLN 5 ML BOTTLE 1 DROP LEFT EYE ×2 (08:37→18:13)
[2022-07-05] MEDS: BRIMONIDINE TARTRATE 0.2% OP SOLN 5 ML BTL 1 DROP EACH EYE ×2 (08:39→18:13)
--- NOTE | 2022-07-05 08:39 | PCRCNOTE ---
Pt is currently on comfort care, RT asked family if they would like neb tx at this time, Family stated not at this time, maybe later. Pt does not seem to be at distress. RN informed.
[2022-07-05 09:29] LABS: Alanine Aminotransferase 21 U/L (6-50); Estimated CRCL calculation 31 ml/min; Estimated Glomerular Filt Rate 39
[2022-07-05 09:33] LABS: INR 1.2; Prothrombin Time 15.3 Seconds (11.1-14.7)
--- NOTE | 2022-07-05 10:00 | P.PNIM_ITS ---
Progress Note: A&P Assessment and Plan (1) Acute respiratory failure with hypoxia: Code(s): J96.01 - Acute respiratory failure with hypoxia Status: Acute Assessment and Plan: Patient with increased work of breathing today, decline in O2 sats to 85% * Initially required 2-4 L supplemental O2 * Worsening respiratory status, went on bipap * ABG respiratory acidosis with hypoxia on 07/04/22 * Repeat CXR shows new retrocardiac opacities in left lower lung may represent atelectasis vs aspiration 07/04/22 * Chest xray from 07/05/22 Hazy bibasilar airspace disease. Correlate for pulmonary edema/atelectasis versus pneumonia * Given pts cognitive status, he is at risk for aspiration. Continue IV Zosyn. NPO at this time. Implement aspiration precautions * IV lasix 40 mg x1 repeate * Albuterol and ipratropium nebs q6h * Monitor O2 sats closely. Goal O2 sats 90% * Discussion about current care and treatment given to and daughter (2) COVID-19: Code(s): U07.1 - COVID-19 Status: Acute Assessment and Plan: COVID-PCR positive on 07/02/22 * Initial CXR with no acute findings, repeat today shows new opacities * Given increased oxygen demand, will begin dexamethasone and remdesivir. Monitor LFTs. Hold dexamethasone today as pt has recieved IV solumedrol 125 mg * completed COVID vaccine and 1 booster * no known COVID 19 positive contacts * continue isolation precautions * supportive care to include bronchodilators, antipyretics, incentive spirometry (will require assistance with this) (3) Altered mental status: Code(s): R41.82 - Altered mental status, unspecified Status: Acute Assessment and Plan: Patient with increased confusion from baseline * patient's notes significant fluctuation in patient's mental status from day-to-day, however states that current behavior is atypical for him * head CT and CTA of head and neck with no acute findings. brain MRI with no acute intracranial process * likely related to acute viral illness * UA not overly concerning for infection, however with urinary frequency, incontinence and bladder wall thickening concerning for possible cystitis on imaging, will administer 1 dose of IV ceftriaxone while awaiting urine culture results * B12, folate, and TSH within normal limits * patient afebrile, no leukocytosis * monitor mental status closely * appreciate neurology recommendations (4) Dementia with behavioral disturbance: Code(s): F03.918 - Unspecified dementia, unspecified severity, with other behavioral disturbance Status: Acute Assessment and Plan: with waxing and waning mental status * patient maintained on memantine, rivastigmine, and Seroquel * seems that patient has been requiring more and more care at home. His is the primary camp manager but patient may be at a point where he is requiring more assistance than what can be provided. May need to consider home health versus memory care placement options. Appreciate care coordination recommendations (5) Meningioma: Code(s): D32.9 - Benign neoplasm of meninges, unspecified Status: Acute Assessment and Plan: CTA showed 14 mm sphenoid wing mass ( also evident on head CT), most consistent with meningioma * brain MRI with 1.5 x 1.2 . 0.8 cm exta axial dural based mass consistent with meningion at junction of left anterior and middle cranial fossa * appreciate Neurology recommendations (6) Generalized weakness: Code(s): R53.1 - Weakness Status: Acute Assessm
--- NOTE | 2022-07-05 10:00 | PM.IMPN ---
Progress Note: A&P Assessment and Plan (1) Acute respiratory failure with hypoxia: Code(s): J96.01 - Acute respiratory failure with hypoxia Status: Acute Assessment and Plan: Patient with increased work of breathing today, decline in O2 sats to 85% Initially required 2-4 L supplemental O2 Worsening respiratory status, went on bipap ABG respiratory acidosis with hypoxia on 07/04/22 Repeat CXR shows new retrocardiac opacities in left lower lung may represent atelectasis vs aspiration 07/04/22 Chest xray from 07/05/22 Hazy bibasilar airspace disease. Correlate for pulmonary edema/atelectasis versus pneumonia Given pts cognitive status, he is at risk for aspiration. Continue IV Zosyn. NPO at this time. Implement aspiration precautions IV lasix 40 mg x1 repeate Albuterol and ipratropium nebs q6h Monitor O2 sats closely. Goal O2 sats 90% Discussion about current care and treatment given to and daughter (2) COVID-19: Code(s): U07.1 - COVID-19 Status: Acute Assessment and Plan: COVID-PCR positive on 07/02/22 Initial CXR with no acute findings, repeat today shows new opacities Given increased oxygen demand, will begin dexamethasone and remdesivir. Monitor LFTs. Hold dexamethasone today as pt has recieved IV solumedrol 125 mg completed COVID vaccine and 1 booster no known COVID 19 positive contacts continue isolation precautions supportive care to include bronchodilators, antipyretics, incentive spirometry (will require assistance with this) (3) Altered mental status: Code(s): R41.82 - Altered mental status, unspecified Status: Acute Assessment and Plan: Patient with increased confusion from baseline patient's notes significant fluctuation in patient's mental status from day-to-day, however states that current behavior is atypical for him head CT and CTA of head and neck with no acute findings. brain MRI with no acute intracranial process likely related to acute viral illness UA not overly concerning for infection, however with urinary frequency, incontinence and bladder wall thickening concerning for possible cystitis on imaging, will administer 1 dose of IV ceftriaxone while awaiting urine culture results B12, folate, and TSH within normal limits patient afebrile, no leukocytosis monitor mental status closely appreciate neurology recommendations (4) Dementia with behavioral disturbance: Code(s): F03.918 - Unspecified dementia, unspecified severity, with other behavioral disturbance Status: Acute Assessment and Plan: with waxing and waning mental status patient maintained on memantine, rivastigmine, and Seroquel seems that patient has been requiring more and more care at home. His is the primary recreation specialist but patient may be at a point where he is requiring more assistance than what can be provided. May need to consider home health versus memory care placement options. Appreciate care coordination recommendations (5) Meningioma: Code(s): D32.9 - Benign neoplasm of meninges, unspecified Status: Acute Assessment and Plan: CTA showed 14 mm sphenoid wing mass ( also evident on head CT), most consistent with meningioma brain MRI with 1.5 x 1.2 . 0.8 cm exta axial dural based mass consistent with meningion at junction of left anterior and middle cranial fossa appreciate Neurology recommendations (6) Generalized weakness: Code(s): R53.1 - Weakness Status: Acute Assessment and Plan: patient with decreased mobility and increased weakness per suspect acute on chronic, likely related to overall physical deconditioning worsened by acute viral illness appreciate PT/ OT eval when pt is medically stable (7) Esophagitis: Code(s): K20.90 - Esophagitis, unspecified without bleeding Status: Acute Assessment and Plan: CT of the abdomen/ pelvis de
[2022-07-05 11:35] LABS: Alanine Aminotransferase 23 U/L (6-50); Albumin Level 3.9 g/dL (3.5-5.1); Alkaline Phosphatase 52 U/L (38-126); Anion Gap 13 mmol/L (8-16); Aspartate Amino Transferase 33 U/L (17-59); Blood Urea Nitrogen 63 mg/dL (9-20); Calcium 8.6 mg/dL (8.4-10.2); Carbon Dioxide 22 mmol/L (22-30); Chloride 101 mmol/L (98-107); Estimated CRCL calculation 31 ml/min; Estimated Glomerular Filt Rate 39; Glucose 356 mg/dL (65-110); Potassium 3.9 mmol/L (3.4-5.0); Sodium 136 mmol/L (137-145)
[2022-07-05] MEDS: REMDESIVIR 100 MG/NS 250 ML 100 MG/250 ML BAG 250 MG IVPB (11:35)
[2022-07-05 14:00] VITALS: BP 124/64; PULSE 65; RESP 16; TEMP 36.7; O2SAT 93
[2022-07-05] MEDS: FUROSEMIDE INJ 40 MG/4 ML VIAL IV PUSH (15:18)
--- NOTE | 2022-07-05 19:26 | PCRCNOTE ---
RN will call if pt need TX.
[2022-07-05 20:00] VITALS: PULSE 65; RESP 16; O2SAT 93
[2022-07-05 21:03] VITALS: BP 141/63; PULSE 71; RESP 16; TEMP 36.4; O2SAT 93
[2022-07-05] MEDS: LATANOPROST 0.005% OP SOLN 2.5 ML BTL 1 DROP LEFT EYE (22:09)
[2022-07-06] MEDS: PIPERACILLN/TAZ 3.375GM/NS50ML 3.375 GM/50 ML BAG IVPB ×3 (05:55→17:15)
[2022-07-06 06:00] VITALS: BP 151/61; PULSE 69; RESP 16; TEMP 36.1; O2SAT 93
[2022-07-06 06:22] LABS: INR 1.2; Prothrombin Time 15.5 Seconds (11.1-14.7)
[2022-07-06 06:30] LABS: Alanine Aminotransferase 21 U/L (6-50); Albumin Level 3.9 g/dL (3.5-5.1); Alkaline Phosphatase 51 U/L (38-126); Anion Gap 12 mmol/L (8-16); Aspartate Amino Transferase 29 U/L (17-59); Blood Urea Nitrogen 69 mg/dL (9-20); Calcium 8.6 mg/dL (8.4-10.2); Carbon Dioxide 28 mmol/L (22-30); Chloride 102 mmol/L (98-107); Estimated CRCL calculation 44 ml/min; Estimated Glomerular Filt Rate 58; Glucose 380 mg/dL (65-110); Magnesium 2.7 mg/dL (1.6-2.3); Potassium 3.3 mmol/L (3.4-5.0); Sodium 142 mmol/L (137-145)
[2022-07-06] MEDS: BRIMONIDINE TARTRATE 0.2% OP SOLN 5 ML BTL 1 DROP EACH EYE ×2 (08:58→17:15)
[2022-07-06] MEDS: ENOXAPARIN 40 MG/0.4 ML SYRINGE SUB-Q (08:59)
[2022-07-06] MEDS: TIMOLOL MALEATE 0.5% OP SOLN 5 ML BOTTLE 1 DROP LEFT EYE ×2 (08:59→17:15)
[2022-07-06 09:00] VITALS: PULSE 69; RESP 16; O2SAT 93
[2022-07-06] MEDS: INSULIN ASPART (*BKC) 100 UNITS/ML 10 UNITS SUB-Q (09:00)
--- NOTE | 2022-07-06 09:15 | P.PNIM_ITS ---
Progress Note: A&P Assessment and Plan (1) Acute respiratory failure with hypoxia: Code(s): J96.01 - Acute respiratory failure with hypoxia Status: Acute Assessment and Plan: Patient with increased work of breathing today, decline in O2 sats to 85% * Initially required 2-4 L supplemental O2 * Worsening respiratory status, went on bipap 07/04/22 * ABG respiratory acidosis with hypoxia on 07/04/22 * Repeat CXR shows new retrocardiac opacities in left lower lung may represent atelectasis vs aspiration 07/04/22 * Chest xray from 07/05/22 Hazy bibasilar airspace disease. Correlate for pulmonary edema/atelectasis versus pneumonia * Given pts cognitive status, he is at risk for aspiration. Continue IV Zosyn. NPO at this time. Implement aspiration precautions * ST consult if mental status is appropiate * IV lasix 40 mg x1 repeated 07/05/22 * Albuterol and ipratropium nebs q6h * Monitor O2 sats closely. Goal O2 sats 90% * Discussion about current care and treatment given to and daughter at length * Currently on RA, sating 90-93% * Sputum culture (2) COVID-19: Code(s): U07.1 - COVID-19 Status: Acute Assessment and Plan: COVID-PCR positive on 07/02/22 * Initial CXR with no acute findings, repeat today shows new opacities * Given increased oxygen demand, will begin dexamethasone and remdesivir. * Monitor LFTs. * completed COVID vaccine and 1 booster * no known COVID 19 positive contacts * continue isolation precautions * supportive care to include bronchodilators, antipyretics, incentive spirometry (will require assistance with this) (3) Dementia with behavioral disturbance: Code(s): F03.918 - Unspecified dementia, unspecified severity, with other behavioral disturbance Status: Acute Assessment and Plan: with waxing and waning mental status * patient maintained on memantine, rivastigmine, and Seroquel * seems that patient has been requiring more and more care at home. His is the primary pearl stringer but patient may be at a point where he is requiring more assistance than what can be provided. May need to consider home health versus memory care placement options. Appreciate care coordination recommendations * Seems to be at baseline * Spoke extensively with family about rehab, and possibly marine oil terminal superintendent placement needs (4) Meningioma: Code(s): D32.9 - Benign neoplasm of meninges, unspecified Status: Acute Assessment and Plan: CTA showed 14 mm sphenoid wing mass ( also evident on head CT), most consistent with meningioma * brain MRI with 1.5 x 1.2 . 0.8 cm exta axial dural based mass consistent with meningion at junction of left anterior and middle cranial fossa * appreciate Neurology recommendations (5) Generalized weakness: Code(s): R53.1 - Weakness Status: Acute Assessment and Plan: patient with decreased mobility and increased weakness per * suspect acute on chronic, likely related to overall physical deconditioning worsened by acute viral illness * appreciate PT/ OT eval when pt is medically stable (6) Esophagitis: Code(s): K20.90 - Esophagitis, unspecified without bleeding Status: Acute Assessment and Plan: CT of the abdomen/ pelvis demonstrated esophagitis/gastritis * started pantoprazole 40 mg daily (7) Acute kidney injury: Code(s): N17.9 - Acute kidney failure, unspecified Status: Acute Asse
--- NOTE | 2022-07-06 09:15 | PM.IMPN ---
Progress Note: A&P Assessment and Plan (1) Acute respiratory failure with hypoxia: Code(s): J96.01 - Acute respiratory failure with hypoxia Status: Acute Assessment and Plan: Patient with increased work of breathing today, decline in O2 sats to 85% Initially required 2-4 L supplemental O2 Worsening respiratory status, went on bipap 07/04/22 ABG respiratory acidosis with hypoxia on 07/04/22 Repeat CXR shows new retrocardiac opacities in left lower lung may represent atelectasis vs aspiration 07/04/22 Chest xray from 07/05/22 Hazy bibasilar airspace disease. Correlate for pulmonary edema/atelectasis versus pneumonia Given pts cognitive status, he is at risk for aspiration. Continue IV Zosyn. NPO at this time. Implement aspiration precautions ST consult if mental status is appropiate IV lasix 40 mg x1 repeated 07/05/22 Albuterol and ipratropium nebs q6h Monitor O2 sats closely. Goal O2 sats 90% Discussion about current care and treatment given to and daughter at length Currently on RA, sating 90-93% Sputum culture (2) COVID-19: Code(s): U07.1 - COVID-19 Status: Acute Assessment and Plan: COVID-PCR positive on 07/02/22 Initial CXR with no acute findings, repeat today shows new opacities Given increased oxygen demand, will begin dexamethasone and remdesivir. Monitor LFTs. completed COVID vaccine and 1 booster no known COVID 19 positive contacts continue isolation precautions supportive care to include bronchodilators, antipyretics, incentive spirometry (will require assistance with this) (3) Dementia with behavioral disturbance: Code(s): F03.918 - Unspecified dementia, unspecified severity, with other behavioral disturbance Status: Acute Assessment and Plan: with waxing and waning mental status patient maintained on memantine, rivastigmine, and Seroquel seems that patient has been requiring more and more care at home. His is the primary metal grader but patient may be at a point where he is requiring more assistance than what can be provided. May need to consider home health versus memory care placement options. Appreciate care coordination recommendations Seems to be at baseline Spoke extensively with family about rehab, and possibly detention placement needs (4) Meningioma: Code(s): D32.9 - Benign neoplasm of meninges, unspecified Status: Acute Assessment and Plan: CTA showed 14 mm sphenoid wing mass ( also evident on head CT), most consistent with meningioma brain MRI with 1.5 x 1.2 . 0.8 cm exta axial dural based mass consistent with meningion at junction of left anterior and middle cranial fossa appreciate Neurology recommendations (5) Generalized weakness: Code(s): R53.1 - Weakness Status: Acute Assessment and Plan: patient with decreased mobility and increased weakness per suspect acute on chronic, likely related to overall physical deconditioning worsened by acute viral illness appreciate PT/ OT eval when pt is medically stable (6) Esophagitis: Code(s): K20.90 - Esophagitis, unspecified without bleeding Status: Acute Assessment and Plan: CT of the abdomen/ pelvis demonstrated esophagitis/gastritis started pantoprazole 40 mg daily (7) Acute kidney injury: Code(s): N17.9 - Acute kidney failure, unspecified Status: Acute Assessment and Plan: Creatinine better at 1.20 Baseline 0.8-1.10 IV lasix x 1 given Trend urine output Trend labs Adjust therapy as indicated (8) Acute metabolic encephalopathy: Code(s): G93.41 - Metabolic encephalopathy Status: Acute Assessment and Plan: Patient with increased confusion from baseline patient's notes significant fluctuation in patient's mental status from day-to-day, however states that current behavior is atypical
[2022-07-06] MEDS: REMDESIVIR 100 MG/NS 250 ML 100 MG/250 ML BAG 250 MG IVPB (10:00)
[2022-07-06 12:50] LABS: Glucose Point of Care 346 mg/dl (65-105)
[2022-07-06] MEDS: INSULIN ASPART (*BKC) 100 UNITS/ML SUB-Q ×2 (13:28→17:28)
[2022-07-06 14:00] VITALS: BP 124/51; PULSE 65; RESP 16; TEMP 36.2; O2SAT 90
[2022-07-06 17:25] LABS: Glucose Point of Care 286 mg/dl (65-105)
[2022-07-06 20:46] VITALS: BP 133/52; PULSE 65; RESP 16; TEMP 36.5; O2SAT 97
[2022-07-06] MEDS: LATANOPROST 0.005% OP SOLN 2.5 ML BTL 1 DROP LEFT EYE (20:48)
[2022-07-07] MEDS: PIPERACILLN/TAZ 3.375GM/NS50ML 3.375 GM/50 ML BAG IVPB ×4 (00:47→17:29)
[2022-07-07] MEDS: INSULIN ASPART (*BKC) 100 UNITS/ML SUB-Q ×4 (00:47→17:31)
[2022-07-07 01:12] LABS: Glucose Point of Care 323 mg/dl (65-105)
[2022-07-07 05:22] VITALS: BP 132/60; PULSE 63; RESP 14; TEMP 36.6; O2SAT 92
[2022-07-07 05:58] LABS: Glucose Point of Care 255 mg/dl (65-105)
[2022-07-07 06:04] LABS: Prothrombin Time 13.5 Seconds (11.1-14.7)
[2022-07-07 06:31] LABS: Alanine Aminotransferase 21 U/L (6-50); Albumin Level 3.7 g/dL (3.5-5.1); Alkaline Phosphatase 48 U/L (38-126); Anion Gap 10 mmol/L (8-16); Aspartate Amino Transferase 31 U/L (17-59); Blood Urea Nitrogen 65 mg/dL (9-20); Calcium 8.8 mg/dL (8.4-10.2); Carbon Dioxide 30 mmol/L (22-30); Chloride 107 mmol/L (98-107); Estimated CRCL calculation 52 ml/min; Estimated Glomerular Filt Rate > 60; Glucose 291 mg/dL (65-110); Magnesium 2.8 mg/dL (1.6-2.3); Potassium 3.6 mmol/L (3.4-5.0); Sodium 147 mmol/L (137-145)
[2022-07-07 07:06] LABS: Basophils Absolute Auto 0.1 K/mm3 (0.0-0.1); Basophils Percent Auto 0.4 % (0.2-1.2); Eosinophils Percent Auto 0.3 % (0-4.4); Hemoglobin 14.2 g/dL (14.0-18.0); Immature Granulocyte Absolute 0.09 K/mm3 (0.00-0.031); Immature Granulocyte Percent A 0.6 % (0-0.5); Lymphocytes Absolute Auto 0.68 K/mm3 (0.9-3.2); Lymphocytes Percent Auto 4.4 % (18.3-44.2); Mean Corpuscular HGB Conc 33.8 g/dl (32-36); Mean Corpuscular Hemoglobin 30.7 pg (26-34); Mean Corpuscular Volume 90.9 fl (80-100); Mean Platelet Volume 10.2 fl (7.4-10.4); Monocytes Absolute Auto 0.8 K/mm3 (0.1-0.6); Monocytes Percent Auto 4.9 % (2.6-8.5); Neutrophils Absolute Auto 13.7 K/mm3 (1.3-6.7); Neutrophils Percent Auto 89.4 % (45.5-73.1); Platelet Count Result 202 k/mm3 (150-375); Red Blood Count 4.62 M/mm3 (4.6-6.20); White Blood Count 15.3 K/mm3 (4.5-10.0)
[2022-07-07] MEDS: LACTATED RINGERS 1,000 ML 100 ML IV CONT ×2 (08:16→20:30)
[2022-07-07] MEDS: ENOXAPARIN 40 MG/0.4 ML SYRINGE SUB-Q (08:17)
[2022-07-07] MEDS: BRIMONIDINE TARTRATE 0.2% OP SOLN 5 ML BTL 1 DROP EACH EYE ×2 (08:18→17:29)
[2022-07-07] MEDS: TIMOLOL MALEATE 0.5% OP SOLN 5 ML BOTTLE 1 DROP LEFT EYE ×2 (08:18→17:28)
[2022-07-07 08:34] VITALS: PULSE 63; RESP 14; O2SAT 92
[2022-07-07 08:38] LABS: Glucose Point of Care 271 mg/dl (65-105)
[2022-07-07] MEDS: DOXYCYCLINE 100 MG/NS 100 ML 100 MG/100 ML BAG IVPB ×2 (10:15→20:30)
[2022-07-07] MEDS: REMDESIVIR 100 MG/NS 250 ML 100 MG/250 ML BAG 250 MG IVPB (12:08)
[2022-07-07 12:32] LABS: Glucose Point of Care 285 mg/dl (65-105)
--- NOTE | 2022-07-07 12:43 | PCSTNOTE ---
Bedside swallowing evaluation completed. Patient positioned upright in bed, and daughter present to observe and provide background information. Patient kept head turned far to the right during evaluation, was unable to turn head on request, and grimaced when gentle tactile cues were used. Reported to nursing, who state that this is habitual and patient has been doing this for a long time, per family. Trials of thin liquid with ice chips were given by spoon. Maximum cues required for patient to open mouth and accept bolus. Coughing followed immediately with both trials (3ml and 5ml). Evaluation stopped and education provided to family regarding patient's swallowing ability at this time. Nurse and physician contacted and informed of results. NPO recommended at this time. No further speech therapy recommended. Patient is not a candidate for modified barium swallow study at this time. Patient's swallowing should be reevaluated should he show change in status. Thank you for the referral of this patient.
[2022-07-07 14:00] VITALS: BP 125/59; PULSE 66; RESP 16; TEMP 36.4; O2SAT 98
--- NOTE | 2022-07-07 14:25 | PCOTNOTE ---
Attempted OT evaluation, patient unarousable at this time, will follow.
[2022-07-07 17:27] LABS: Glucose Point of Care 285 mg/dl (65-105)
[2022-07-07 20:07] VITALS: BP 159/53; PULSE 64; RESP 20; TEMP 36.9; O2SAT 93
[2022-07-07] MEDS: LATANOPROST 0.005% OP SOLN 2.5 ML BTL 1 DROP LEFT EYE (20:30)
[2022-07-07 20:51] LABS: Glucose Point of Care 282 mg/dl (65-105)
[2022-07-08 00:54] LABS: Glucose Point of Care 270 mg/dl (65-105)
[2022-07-08] MEDS: PIPERACILLN/TAZ 3.375GM/NS50ML 3.375 GM/50 ML BAG IVPB ×4 (01:04→17:26)
[2022-07-08] MEDS: INSULIN ASPART (*BKC) 100 UNITS/ML SUB-Q ×4 (01:04→17:26)
[2022-07-08 06:00] VITALS: BP 144/83; PULSE 77; RESP 20; TEMP 36.6; O2SAT 97
[2022-07-08 06:01] LABS: Glucose Point of Care 253 mg/dl (65-105)
[2022-07-08] MEDS: LACTATED RINGERS 1,000 ML 100 ML IV CONT (06:08)
[2022-07-08 06:44] LABS: Basophils Percent Auto 0.1 % (0.2-1.2); Hematocrit 36.9 % (42.0-52.0); Hemoglobin 12.3 g/dL (14.0-18.0); INR 1.2; Immature Granulocyte Absolute 0.05 K/mm3 (0.00-0.031); Immature Granulocyte Percent A 0.5 % (0-0.5); Lymphocytes Absolute Auto 0.65 K/mm3 (0.9-3.2); Lymphocytes Percent Auto 5.9 % (18.3-44.2); Mean Corpuscular HGB Conc 33.3 g/dl (32-36); Mean Platelet Volume 10.1 fl (7.4-10.4); Monocytes Absolute Auto 0.6 K/mm3 (0.1-0.6); Monocytes Percent Auto 5.3 % (2.6-8.5); Neutrophils Absolute Auto 9.8 K/mm3 (1.3-6.7); Neutrophils Percent Auto 88.2 % (45.5-73.1); Platelet Count Result 185 k/mm3 (150-375); Prothrombin Time 15.5 Seconds (11.1-14.7); Red Cell Distribution Width 12.8 % (11.5-14.5); White Blood Count 11.1 K/mm3 (4.5-10.0)
[2022-07-08 06:45] LABS: Alanine Aminotransferase 24 U/L (6-50); Albumin Level 3.3 g/dL (3.5-5.1); Alkaline Phosphatase 57 U/L (38-126); Anion Gap 6 mmol/L (8-16); Aspartate Amino Transferase 26 U/L (17-59); Bilirubin,Total 0.9 mg/dL (0.2-1.3); Blood Urea Nitrogen 52 mg/dL (9-20); Calcium 8.5 mg/dL (8.4-10.2); Carbon Dioxide 31 mmol/L (22-30); Chloride 113 mmol/L (98-107); Estimated CRCL calculation 52 ml/min; Estimated Glomerular Filt Rate > 60; Glucose 244 mg/dL (65-110); Magnesium 2.6 mg/dL (1.6-2.3); Potassium 3.2 mmol/L (3.4-5.0); Sodium 150 mmol/L (137-145)
[2022-07-08 08:00] VITALS: O2SAT 97
[2022-07-08] MEDS: BRIMONIDINE TARTRATE 0.2% OP SOLN 5 ML BTL 1 DROP EACH EYE ×2 (08:39→17:27)
[2022-07-08] MEDS: DOXYCYCLINE 100 MG/NS 100 ML 100 MG/100 ML BAG IVPB ×2 (08:40→20:09)
[2022-07-08] MEDS: ENOXAPARIN 40 MG/0.4 ML SYRINGE SUB-Q (08:40)
[2022-07-08] MEDS: TIMOLOL MALEATE 0.5% OP SOLN 5 ML BOTTLE 1 DROP LEFT EYE ×2 (08:41→17:27)
--- NOTE | 2022-07-08 09:32 | PCOTNOTE ---
Attempted OT evaluation, patient unarousable at this time, will follow.
[2022-07-08] MEDS: DEXTROSE 5% 1,000 ML 1,000 ML 100 ML IV CONT ×2 (09:56→20:08)
[2022-07-08] MEDS: REMDESIVIR 100 MG/NS 250 ML 100 MG/250 ML BAG 250 MG IVPB (09:56)
--- NOTE | 2022-07-08 12:00 | P.PNIM_ITS ---
Progress Note: A&P Assessment and Plan (1) Acute respiratory failure with hypoxia: Code(s): J96.01 - Acute respiratory failure with hypoxia Status: Acute Assessment and Plan: Patient with increased work of breathing today, decline in O2 sats to 85% * Initially required 2-4 L supplemental O2 * Worsening respiratory status, went on bipap 07/04/22 * ABG respiratory acidosis with hypoxia on 07/04/22 * Repeat CXR shows new retrocardiac opacities in left lower lung may represent atelectasis vs aspiration 07/04/22 * Chest xray from 07/05/22 Hazy bibasilar airspace disease. Correlate for pulmonary edema/atelectasis versus pneumonia * Given pts cognitive status, he is at risk for aspiration. Continue IV Zosyn. NPO at this time. Implement aspiration precautions * ST consult if mental status is appropiate * IV lasix 40 mg x1 repeated 07/05/22 * Albuterol and ipratropium nebs q6h * Monitor O2 sats closely. Goal O2 sats 90% * Discussion about current care and treatment given to and daughter at length * Currently on RA, sating 90-93% * Sputum culture (2) COVID-19: Code(s): U07.1 - COVID-19 Status: Acute Assessment and Plan: COVID-PCR positive on 07/02/22 * Initial CXR with no acute findings, repeat today shows new opacities * Given increased oxygen demand, Continue dexamethasone and remdesivir, day 4/5 * Monitor LFTs. * completed COVID vaccine and 1 booster * no known COVID 19 positive contacts * continue isolation precautions * supportive care to include bronchodilators, antipyretics, incentive spirometry (will require assistance with this) (3) Dementia with behavioral disturbance: Code(s): F03.918 - Unspecified dementia, unspecified severity, with other behavioral disturbance Status: Acute Assessment and Plan: with waxing and waning mental status * patient maintained on memantine, rivastigmine, and Seroquel * seems that patient has been requiring more and more care at home. His is the primary electric fork operator but patient may be at a point where he is requiring more assistance than what can be provided. May need to consider home health versus memory care placement options. Appreciate care coordination recommendations * Seems to be at baseline * Spoke extensively with family about rehab, and possibly continuous churn buttermaker placement needs (4) Meningioma: Code(s): D32.9 - Benign neoplasm of meninges, unspecified Status: Acute Assessment and Plan: CTA showed 14 mm sphenoid wing mass ( also evident on head CT), most consistent with meningioma * brain MRI with 1.5 x 1.2 . 0.8 cm exta axial dural based mass consistent with meningion at junction of left anterior and middle cranial fossa * appreciate Neurology recommendations (5) Generalized weakness: Code(s): R53.1 - Weakness Status: Acute Assessment and Plan: patient with decreased mobility and increased weakness per * suspect acute on chronic, likely related to overall physical deconditioning worsened by acute viral illness * appreciate PT/ OT eval * Was able to get to the chair yesterday * Baseline is ambulatory at home (6) Esophagitis: Code(s): K20.90 - Esophagitis, unspecified without bleeding Status: Acute Assessment and Plan: CT of the abdomen/ pelvis demonstrated esophagitis/gastritis * started pantoprazole 40 mg daily
--- NOTE | 2022-07-08 12:00 | PM.IMPN ---
Progress Note: A&P Assessment and Plan (1) Acute respiratory failure with hypoxia: Code(s): J96.01 - Acute respiratory failure with hypoxia Status: Acute Assessment and Plan: Patient with increased work of breathing today, decline in O2 sats to 85% Initially required 2-4 L supplemental O2 Worsening respiratory status, went on bipap 07/04/22 ABG respiratory acidosis with hypoxia on 07/04/22 Repeat CXR shows new retrocardiac opacities in left lower lung may represent atelectasis vs aspiration 07/04/22 Chest xray from 07/05/22 Hazy bibasilar airspace disease. Correlate for pulmonary edema/atelectasis versus pneumonia Given pts cognitive status, he is at risk for aspiration. Continue IV Zosyn. NPO at this time. Implement aspiration precautions ST consult if mental status is appropiate IV lasix 40 mg x1 repeated 07/05/22 Albuterol and ipratropium nebs q6h Monitor O2 sats closely. Goal O2 sats 90% Discussion about current care and treatment given to and daughter at length Currently on RA, sating 90-93% Sputum culture (2) COVID-19: Code(s): U07.1 - COVID-19 Status: Acute Assessment and Plan: COVID-PCR positive on 07/02/22 Initial CXR with no acute findings, repeat today shows new opacities Given increased oxygen demand, Continue dexamethasone and remdesivir, day 4/5 Monitor LFTs. completed COVID vaccine and 1 booster no known COVID 19 positive contacts continue isolation precautions supportive care to include bronchodilators, antipyretics, incentive spirometry (will require assistance with this) (3) Dementia with behavioral disturbance: Code(s): F03.918 - Unspecified dementia, unspecified severity, with other behavioral disturbance Status: Acute Assessment and Plan: with waxing and waning mental status patient maintained on memantine, rivastigmine, and Seroquel seems that patient has been requiring more and more care at home. His is the primary ecommerce marketing specialist but patient may be at a point where he is requiring more assistance than what can be provided. May need to consider home health versus memory care placement options. Appreciate care coordination recommendations Seems to be at baseline Spoke extensively with family about rehab, and possibly long term acute care registered nurse placement needs (4) Meningioma: Code(s): D32.9 - Benign neoplasm of meninges, unspecified Status: Acute Assessment and Plan: CTA showed 14 mm sphenoid wing mass ( also evident on head CT), most consistent with meningioma brain MRI with 1.5 x 1.2 . 0.8 cm exta axial dural based mass consistent with meningion at junction of left anterior and middle cranial fossa appreciate Neurology recommendations (5) Generalized weakness: Code(s): R53.1 - Weakness Status: Acute Assessment and Plan: patient with decreased mobility and increased weakness per suspect acute on chronic, likely related to overall physical deconditioning worsened by acute viral illness appreciate PT/ OT joaquim Was able to get to the chair yesterday Baseline is ambulatory at home (6) Esophagitis: Code(s): K20.90 - Esophagitis, unspecified without bleeding Status: Acute Assessment and Plan: CT of the abdomen/ pelvis demonstrated esophagitis/gastritis started pantoprazole 40 mg daily (7) Acute kidney injury: Code(s): N17.9 - Acute kidney failure, unspecified Status: Acute Assessment and Plan: Creatinine better at 1.00 Baseline 0.8-1.10 IV lasix x 1 given Trend urine output Trend labs Adjust therapy as indicated (8) Acute metabolic encephalopathy: Code(s): G93.41 - Metabolic encephalopathy Status: Acute Assessment and Plan: Patient with increased confusion from baseline patient's notes significant fluctuation in p
--- NOTE | 2022-07-08 12:12 | PCSTNOTE ---
Please refer to the Bedside Swallow Evaluation in the EMR. Please note, silent aspiration cannot be ruled out at bedside.
[2022-07-08 12:14] LABS: Glucose Point of Care 286 mg/dl (65-105)
[2022-07-08 15:27] LABS: Sodium 144 mmol/L (137-145)
[2022-07-08 15:53] VITALS: BP 149/63; PULSE 66; RESP 18; TEMP 36.6; O2SAT 93
[2022-07-08 17:21] LABS: Glucose Point of Care 361 mg/dl (65-105)
[2022-07-08] MEDS: LATANOPROST 0.005% OP SOLN 2.5 ML BTL 1 DROP LEFT EYE (20:09)
[2022-07-08 21:03] VITALS: BP 141/59; PULSE 62; RESP 16; TEMP 36.8; O2SAT 92
[2022-07-09 00:54] LABS: Glucose Point of Care 262 mg/dl (65-105)
[2022-07-09] MEDS: INSULIN ASPART (*BKC) 100 UNITS/ML SUB-Q ×5 (01:07→23:48)
[2022-07-09] MEDS: PIPERACILLN/TAZ 3.375GM/NS50ML 3.375 GM/50 ML BAG IVPB ×5 (01:08→23:49)
[2022-07-09] MEDS: DEXTROSE 5% 1,000 ML 1,000 ML 100 ML IV CONT ×3 (01:08→20:17)
[2022-07-09 06:00] VITALS: BP 156/71; PULSE 67; RESP 20; TEMP 36.4; O2SAT 93
[2022-07-09 06:06] LABS: Glucose Point of Care 302 mg/dl (65-105)
[2022-07-09 09:21] LABS: Basophils Percent Auto 0.4 % (0.2-1.2); Eosinophils Percent Auto 0.1 % (0-4.4); Hematocrit 39.4 % (42.0-52.0); Hemoglobin 13.2 g/dL (14.0-18.0); Immature Granulocyte Absolute 0.15 K/mm3 (0.00-0.031); Immature Granulocyte Percent A 1.4 % (0-0.5); Lymphocytes Percent Auto 5.7 % (18.3-44.2); Mean Corpuscular HGB Conc 33.5 g/dl (32-36); Mean Corpuscular Hemoglobin 30.5 pg (26-34); Mean Platelet Volume 10.3 fl (7.4-10.4); Monocytes Absolute Auto 0.6 K/mm3 (0.1-0.6); Monocytes Percent Auto 5.8 % (2.6-8.5); Neutrophils Absolute Auto 9.1 K/mm3 (1.3-6.7); Neutrophils Percent Auto 86.6 % (45.5-73.1); Platelet Count Result 200 k/mm3 (150-375); Red Blood Count 4.33 M/mm3 (4.6-6.20); Red Cell Distribution Width 12.9 % (11.5-14.5); White Blood Count 10.5 K/mm3 (4.5-10.0)
[2022-07-09 09:34] LABS: Alanine Aminotransferase 21 U/L (6-50); Albumin Level 3.2 g/dL (3.5-5.1); Alkaline Phosphatase 58 U/L (38-126); Anion Gap 6 mmol/L (8-16); Aspartate Amino Transferase 21 U/L (17-59); Blood Urea Nitrogen 41 mg/dL (9-20); Calcium 8.2 mg/dL (8.4-10.2); Carbon Dioxide 30 mmol/L (22-30); Chloride 111 mmol/L (98-107); Estimated CRCL calculation 57 ml/min; Estimated Glomerular Filt Rate > 60; Glucose 301 mg/dL (65-110); Magnesium 2.5 mg/dL (1.6-2.3); Potassium 2.9 mmol/L (3.4-5.0); Sodium 147 mmol/L (137-145)
[2022-07-09] MEDS: DOXYCYCLINE 100 MG/NS 100 ML 100 MG/100 ML BAG IVPB ×2 (09:40→20:11)
[2022-07-09] MEDS: BRIMONIDINE TARTRATE 0.2% OP SOLN 5 ML BTL 1 DROP EACH EYE (09:48)
[2022-07-09] MEDS: ENOXAPARIN 40 MG/0.4 ML SYRINGE SUB-Q (09:48)
[2022-07-09] MEDS: TIMOLOL MALEATE 0.5% OP SOLN 5 ML BOTTLE 1 DROP LEFT EYE (09:48)
--- NOTE | 2022-07-09 10:06 | PCOTNOTE ---
Attempted to see pt. from occupational therapy evaluation. Pt. currently unarousable. Nursing aware, and in agreement to call if pt. more alert.
--- NOTE | 2022-07-09 10:12 | PCPTNOTE ---
Attempted to see patient this morning for PT however patient difficult to arouse and only mumbled in response to questions. Patient kept eyes closed.
--- NOTE | 2022-07-09 12:15 | PM.IMPN ---
Progress Note: A&P Assessment and Plan (1) Acute respiratory failure with hypoxia: Code(s): J96.01 - Acute respiratory failure with hypoxia Status: Acute Assessment and Plan: Patient with increased work of breathing today, decline in O2 sats to 85% Initially required 2-4 L supplemental O2 Worsening respiratory status, went on bipap 07/04/22 ABG respiratory acidosis with hypoxia on 07/04/22 Repeat CXR shows new retrocardiac opacities in left lower lung may represent atelectasis vs aspiration 07/04/22 Chest xray from 07/05/22 Hazy bibasilar airspace disease. Correlate for pulmonary edema/atelectasis versus pneumonia Given pts cognitive status, he is at risk for aspiration. Continue IV Zosyn. NPO at this time. Implement aspiration precautions ST consult if mental status is appropiate IV lasix 40 mg x1 repeated 07/05/22 Albuterol and ipratropium nebs q6h Monitor O2 sats closely. Goal O2 sats 90% Discussion about current care and treatment given to and daughter at length Currently on RA, sating 90-93% Sputum culture ordered Appears to be going on hospice, awaiting placement at this time (2) COVID-19: Code(s): U07.1 - COVID-19 Status: Acute Assessment and Plan: COVID-PCR positive on 07/02/22 Initial CXR with no acute findings, repeat today shows new opacities Given increased oxygen demand, Continue dexamethasone and remdesivir, day 5 Remdesivir completed at this time Monitor LFTs. completed COVID vaccine and 1 booster no known COVID 19 positive contacts continue isolation precautions supportive care to include bronchodilators, antipyretics, incentive spirometry (will require assistance with this) (3) Dementia with behavioral disturbance: Code(s): F03.918 - Unspecified dementia, unspecified severity, with other behavioral disturbance Status: Acute Assessment and Plan: with waxing and waning mental status patient maintained on memantine, rivastigmine, and Seroquel seems that patient has been requiring more and more care at home. His is the primary dining service worker but patient may be at a point where he is requiring more assistance than what can be provided. May need to consider home health versus memory care placement options. Appreciate care coordination recommendations Seems to be at baseline Spoke extensively with family about rehab, and possibly terminal system operator placement needs (4) Meningioma: Code(s): D32.9 - Benign neoplasm of meninges, unspecified Status: Acute Assessment and Plan: CTA showed 14 mm sphenoid wing mass ( also evident on head CT), most consistent with meningioma brain MRI with 1.5 x 1.2 . 0.8 cm exta axial dural based mass consistent with meningion at junction of left anterior and middle cranial fossa appreciate Neurology recommendations (5) Generalized weakness: Code(s): R53.1 - Weakness Status: Acute Assessment and Plan: patient with decreased mobility and increased weakness per suspect acute on chronic, likely related to overall physical deconditioning worsened by acute viral illness appreciate PT/ OT joaquim Was able to get to the chair yesterday Baseline is ambulatory at home (6) Esophagitis: Code(s): K20.90 - Esophagitis, unspecified without bleeding Status: Acute Assessment and Plan: CT of the abdomen/ pelvis demonstrated esophagitis/gastritis started pantoprazole 40 mg daily (7) Acute kidney injury: Code(s): N17.9 - Acute kidney failure, unspecified Status: Acute Assessment and Plan: Creatinine better at 1.00 Baseline 0.8-1.10 IV lasix x 1 given Trend urine output Trend labs Adjust therapy as indicated (8) Acute metabolic encephalopathy: Code(s): G93.41 - Metabolic encephalopathy Status: Acute Ass
--- NOTE | 2022-07-09 12:15 | P.PNIM_ITS ---
Progress Note: A&P Assessment and Plan (1) Acute respiratory failure with hypoxia: Code(s): J96.01 - Acute respiratory failure with hypoxia Status: Acute Assessment and Plan: Patient with increased work of breathing today, decline in O2 sats to 85% * Initially required 2-4 L supplemental O2 * Worsening respiratory status, went on bipap 07/04/22 * ABG respiratory acidosis with hypoxia on 07/04/22 * Repeat CXR shows new retrocardiac opacities in left lower lung may represent atelectasis vs aspiration 07/04/22 * Chest xray from 07/05/22 Hazy bibasilar airspace disease. Correlate for pulmonary edema/atelectasis versus pneumonia * Given pts cognitive status, he is at risk for aspiration. Continue IV Zosyn. NPO at this time. Implement aspiration precautions * ST consult if mental status is appropiate * IV lasix 40 mg x1 repeated 07/05/22 * Albuterol and ipratropium nebs q6h * Monitor O2 sats closely. Goal O2 sats 90% * Discussion about current care and treatment given to and daughter at length * Currently on RA, sating 90-93% * Sputum culture ordered * Appears to be going on hospice, awaiting placement at this time (2) COVID-19: Code(s): U07.1 - COVID-19 Status: Acute Assessment and Plan: COVID-PCR positive on 07/02/22 * Initial CXR with no acute findings, repeat today shows new opacities * Given increased oxygen demand, Continue dexamethasone and remdesivir, day 5 * Remdesivir completed at this time * Monitor LFTs. * completed COVID vaccine and 1 booster * no known COVID 19 positive contacts * continue isolation precautions * supportive care to include bronchodilators, antipyretics, incentive spirometry (will require assistance with this) (3) Dementia with behavioral disturbance: Code(s): F03.918 - Unspecified dementia, unspecified severity, with other behavioral disturbance Status: Acute Assessment and Plan: with waxing and waning mental status * patient maintained on memantine, rivastigmine, and Seroquel * seems that patient has been requiring more and more care at home. His is the primary clinical trials manager but patient may be at a point where he is requiring more assistance than what can be provided. May need to consider home health versus memory care placement options. Appreciate care coordination recommendations * Seems to be at baseline * Spoke extensively with family about rehab, and possibly ocean transportation intermediary placement needs (4) Meningioma: Code(s): D32.9 - Benign neoplasm of meninges, unspecified Status: Acute Assessment and Plan: CTA showed 14 mm sphenoid wing mass ( also evident on head CT), most consistent with meningioma * brain MRI with 1.5 x 1.2 . 0.8 cm exta axial dural based mass consistent with meningion at junction of left anterior and middle cranial fossa * appreciate Neurology recommendations (5) Generalized weakness: Code(s): R53.1 - Weakness Status: Acute Assessment and Plan: patient with decreased mobility and increased weakness per * suspect acute on chronic, likely related to overall physical deconditioning worsened by acute viral illness * appreciate PT/ OT eval * Was able to get to the chair yesterday * Baseline is ambulatory at home (6) Esophagitis: Code(s): K20.90 - Esophagitis, unspecified without bleeding Status: Acute
[2022-07-09 12:17] LABS: Glucose Point of Care 313 mg/dl (65-105)
[2022-07-09 14:00] VITALS: BP 156/70; PULSE 66; RESP 18; TEMP 37.2; O2SAT 94
[2022-07-09 16:53] LABS: Glucose Point of Care 299 mg/dl (65-105)
[2022-07-09 20:46] VITALS: BP 134/64; PULSE 65; RESP 20; TEMP 36.5; O2SAT 93
[2022-07-10 05:18] LABS: Glucose Point of Care 288 mg/dl (65-105)
[2022-07-10 05:26] LABS: Glucose Point of Care 297 mg/dl (65-105)
[2022-07-10 05:40] LABS: Basophils Absolute Auto 0.1 K/mm3 (0.0-0.1); Basophils Percent Auto 0.9 % (0.2-1.2); Eosinophils Percent Auto 0.3 % (0-4.4); Hemoglobin 14.1 g/dL (14.0-18.0); Immature Granulocyte Percent A 0.9 % (0-0.5); Lymphocytes Absolute Auto 0.89 K/mm3 (0.9-3.2); Lymphocytes Percent Auto 7.8 % (18.3-44.2); Mean Corpuscular HGB Conc 30.7 g/dl (32-36); Mean Corpuscular Hemoglobin 30.4 pg (26-34); Mean Corpuscular Volume 99.1 fl (80-100); Mean Platelet Volume 10.1 fl (7.4-10.4); Monocytes Absolute Auto 0.7 K/mm3 (0.1-0.6); Neutrophils Absolute Auto 9.7 K/mm3 (1.3-6.7); Neutrophils Percent Auto 84.1 % (45.5-73.1); Nucleated Red Blood Cells Perc 0.2 % (0.0-0.2); Platelet Count Result 173 k/mm3 (150-375); Red Blood Count 4.64 M/mm3 (4.6-6.20); Red Cell Distribution Width 13.1 % (11.5-14.5); White Blood Count 11.5 K/mm3 (4.5-10.0)
[2022-07-10 05:55] LABS: Alanine Aminotransferase 19 U/L (6-50); Albumin Level 3.1 g/dL (3.5-5.1); Alkaline Phosphatase 62 U/L (38-126); Anion Gap 10 mmol/L (8-16); Aspartate Amino Transferase 36 U/L (17-59); Bilirubin,Total 1.2 mg/dL (0.2-1.3); Blood Urea Nitrogen 37 mg/dL (9-20); Calcium 8.1 mg/dL (8.4-10.2); Carbon Dioxide 23 mmol/L (22-30); Chloride 111 mmol/L (98-107); Estimated CRCL calculation 73 ml/min; Estimated Glomerular Filt Rate > 60; Glucose 280 mg/dL (65-110); Magnesium 2.5 mg/dL (1.6-2.3); Potassium 3.8 mmol/L (3.4-5.0); Sodium 144 mmol/L (137-145)
[2022-07-10 06:00] VITALS: BP 143/56; PULSE 65; RESP 20; TEMP 36.2; O2SAT 93
[2022-07-10] MEDS: INSULIN ASPART (*BKC) 100 UNITS/ML SUB-Q ×2 (06:04→13:02)
[2022-07-10] MEDS: PIPERACILLN/TAZ 3.375GM/NS50ML 3.375 GM/50 ML BAG IVPB (06:05)
[2022-07-10 08:52] LABS: Glucose Point of Care 270 mg/dl (65-105)
--- NOTE | 2022-07-10 09:24 | P.PNIM_ITS ---
Progress Note: A&P Assessment and Plan (1) Acute respiratory failure with hypoxia: Code(s): J96.01 - Acute respiratory failure with hypoxia Status: Acute Assessment and Plan: Patient with increased work of breathing today, decline in O2 sats to 85% * Initially required 2-4 L supplemental O2 * Worsening respiratory status, went on bipap 07/04/22 * ABG respiratory acidosis with hypoxia on 07/04/22 * Repeat CXR shows new retrocardiac opacities in left lower lung may represent atelectasis vs aspiration 07/04/22 * Chest xray from 07/05/22 Hazy bibasilar airspace disease. Correlate for pulmonary edema/atelectasis versus pneumonia * Given pts cognitive status, he is at risk for aspiration. Continue IV Zosyn. NPO at this time. Implement aspiration precautions * ST consult if mental status is appropiate * IV lasix 40 mg x1 repeated 07/05/22 * Albuterol and ipratropium nebs q6h * Monitor O2 sats closely. Goal O2 sats 90% * Discussion about current care and treatment given to and daughter at length * Currently on RA, sating 90-93% * Sputum culture ordered * Appears to be going on hospice, awaiting placement at this time (2) COVID-19: Code(s): U07.1 - COVID-19 Status: Acute Assessment and Plan: COVID-PCR positive on 07/02/22 * Initial CXR with no acute findings, repeat today shows new opacities * Given increased oxygen demand, Continue dexamethasone and remdesivir, day 5 * Remdesivir completed at this time * Monitor LFTs. * completed COVID vaccine and 1 booster * no known COVID 19 positive contacts * continue isolation precautions * supportive care to include bronchodilators, antipyretics, incentive spirometry (will require assistance with this) (3) Dementia with behavioral disturbance: Code(s): F03.918 - Unspecified dementia, unspecified severity, with other behavioral disturbance Status: Acute Assessment and Plan: with waxing and waning mental status * patient maintained on memantine, rivastigmine, and Seroquel * seems that patient has been requiring more and more care at home. His is the primary traffic and transport planner but patient may be at a point where he is requiring more assistance than what can be provided. May need to consider home health versus memory care placement options. Appreciate care coordination recommendations * Seems to be at baseline * Spoke extensively with family about rehab, and possibly terminal press operator placement needs (4) Meningioma: Code(s): D32.9 - Benign neoplasm of meninges, unspecified Status: Acute Assessment and Plan: CTA showed 14 mm sphenoid wing mass ( also evident on head CT), most consistent with meningioma * brain MRI with 1.5 x 1.2 . 0.8 cm exta axial dural based mass consistent with meningion at junction of left anterior and middle cranial fossa * appreciate Neurology recommendations (5) Generalized weakness: Code(s): R53.1 - Weakness Status: Acute Assessment and Plan: patient with decreased mobility and increased weakness per * suspect acute on chronic, likely related to overall physical deconditioning worsened by acute viral illness * appreciate PT/ OT eval * Was able to get to the chair yesterday * Baseline is ambulatory at home (6) Esophagitis: Code(s): K20.90 - Esophagitis, unspecified without bleeding Status: Acute
[2022-07-10] MEDS: DOXYCYCLINE 100 MG/NS 100 ML 100 MG/100 ML BAG IVPB (10:16)
--- NOTE | 2022-07-10 12:00 | PM.DS ---
DS: Admitting Diagnosis Discharge Date 07/10/22 1200 Admitting Diagnosis COVID, Mental decline, aspiration pneumonia DS: Discharge Diagnosis Discharge Diagnosis (1) Acute respiratory failure with hypoxia: Code(s): J96.01 - Acute respiratory failure with hypoxia Status: Acute Assessment and Plan: Patient with increased work of breathing today, decline in O2 sats to 85% Initially required 2-4 L supplemental O2 Worsening respiratory status, went on bipap 07/04/22 ABG respiratory acidosis with hypoxia on 07/04/22 Repeat CXR shows new retrocardiac opacities in left lower lung may represent atelectasis vs aspiration 07/04/22 Chest xray from 07/05/22 Hazy bibasilar airspace disease. Correlate for pulmonary edema/atelectasis versus pneumonia Given pts cognitive status, he is at risk for aspiration. Continue IV Zosyn. NPO at this time. Implement aspiration precautions ST consult if mental status is appropiate IV lasix 40 mg x1 repeated 07/05/22 Albuterol and ipratropium nebs q6h Monitor O2 sats closely. Goal O2 sats 90% Discussion about current care and treatment given to and daughter at length Currently on RA, sating 90-93% Sputum culture ordered Appears to be going on hospice, awaiting placement at this time (2) COVID-19: Code(s): U07.1 - COVID-19 Status: Acute Assessment and Plan: COVID-PCR positive on 07/02/22 Initial CXR with no acute findings, repeat today shows new opacities Given increased oxygen demand, Continue dexamethasone and remdesivir, day 5 Remdesivir completed at this time Monitor LFTs. completed COVID vaccine and 1 booster no known COVID 19 positive contacts continue isolation precautions supportive care to include bronchodilators, antipyretics, incentive spirometry (will require assistance with this) (3) Dementia with behavioral disturbance: Code(s): F03.918 - Unspecified dementia, unspecified severity, with other behavioral disturbance Status: Acute Assessment and Plan: with waxing and waning mental status patient maintained on memantine, rivastigmine, and Seroquel seems that patient has been requiring more and more care at home. His is the primary relay dispatcher but patient may be at a point where he is requiring more assistance than what can be provided. May need to consider home health versus memory care placement options. Appreciate care coordination recommendations Seems to be at baseline Spoke extensively with family about rehab, and possibly decision unit rn placement needs (4) Meningioma: Code(s): D32.9 - Benign neoplasm of meninges, unspecified Status: Acute Assessment and Plan: CTA showed 14 mm sphenoid wing mass ( also evident on head CT), most consistent with meningioma brain MRI with 1.5 x 1.2 . 0.8 cm exta axial dural based mass consistent with meningion at junction of left anterior and middle cranial fossa appreciate Neurology recommendations (5) Generalized weakness: Code(s): R53.1 - Weakness Status: Acute Assessment and Plan: patient with decreased mobility and increased weakness per suspect acute on chronic, likely related to overall physical deconditioning worsened by acute viral illness appreciate PT/ OT joaquim Was able to get to the chair yesterday Baseline is ambulatory at home (6) Esophagitis: Code(s): K20.90 - Esophagitis, unspecified without bleeding Status: Acute Assessment and Plan: CT of the abdomen/ pelvis demonstrated esophagitis/gastritis started pantoprazole 40 mg daily (7) Acute kidney injury: Code(s): N17.9 - Acute kidney failure, unspecified Status: Acute Assessment and Plan: Creatinine better at 1.00 Baseline 0.8-1.10 IV lasix x 1 given Trend urine output Trend labs Adjust therapy as indicated
--- NOTE | 2022-07-10 12:00 | P.DS_ITS ---
DS: Admitting Diagnosis Discharge Date 07/10/22 1200 Admitting Diagnosis COVID, Mental decline, aspiration pneumonia DS: Discharge Diagnosis Discharge Diagnosis (1) Acute respiratory failure with hypoxia: Code(s): J96.01 - Acute respiratory failure with hypoxia Status: Acute Assessment and Plan: Patient with increased work of breathing today, decline in O2 sats to 85% * Initially required 2-4 L supplemental O2 * Worsening respiratory status, went on bipap 07/04/22 * ABG respiratory acidosis with hypoxia on 07/04/22 * Repeat CXR shows new retrocardiac opacities in left lower lung may represent atelectasis vs aspiration 07/04/22 * Chest xray from 07/05/22 Hazy bibasilar airspace disease. Correlate for pulmonary edema/atelectasis versus pneumonia * Given pts cognitive status, he is at risk for aspiration. Continue IV Zosyn. NPO at this time. Implement aspiration precautions * ST consult if mental status is appropiate * IV lasix 40 mg x1 repeated 07/05/22 * Albuterol and ipratropium nebs q6h * Monitor O2 sats closely. Goal O2 sats 90% * Discussion about current care and treatment given to and daughter at length * Currently on RA, sating 90-93% * Sputum culture ordered * Appears to be going on hospice, awaiting placement at this time (2) COVID-19: Code(s): U07.1 - COVID-19 Status: Acute Assessment and Plan: COVID-PCR positive on 07/02/22 * Initial CXR with no acute findings, repeat today shows new opacities * Given increased oxygen demand, Continue dexamethasone and remdesivir, day 5 * Remdesivir completed at this time * Monitor LFTs. * completed COVID vaccine and 1 booster * no known COVID 19 positive contacts * continue isolation precautions * supportive care to include bronchodilators, antipyretics, incentive spirometry (will require assistance with this) (3) Dementia with behavioral disturbance: Code(s): F03.918 - Unspecified dementia, unspecified severity, with other behavioral disturbance Status: Acute Assessment and Plan: with waxing and waning mental status * patient maintained on memantine, rivastigmine, and Seroquel * seems that patient has been requiring more and more care at home. His is the primary pc support specialist but patient may be at a point where he is requiring more assistance than what can be provided. May need to consider home health versus memory care placement options. 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 0.8 cm exta axial dural based mass consistent with meningion at junction of left anterior and middle cranial fossa * appreciate Neurology recommendations (5) Generalized weakness: Code(s): R53.1 - Weakness Status: Acute Assessment and Plan: patient with decreased mobility and increased weakness per * suspect acute on chronic, likely related to overall physical deconditioning worsened by acute viral illness * appreciate PT/ OT eval * Was able to get to the chair yesterday * Baseline is ambulatory at home
[2022-07-10 12:44] LABS: Glucose Point of Care 307 mg/dl (65-105)
== END 2022-07-10 15:55 | disposition hospice, home (50) | DRG 177 ==
LOC: ANHED 21:32 → ANH3MED 07-03 06:45
PROVIDERS: Physician Assistant; Admitting Provider Family Medicine; Emergency Provider Physician Assistant; PCP Internal Medicine; Visit Provider Nurse Practitioner
DX: U07.1 COVID-19 (principal); G93.41 Metabolic encephalopathy; J69.0 Pneumonitis due to inhalation of food and vomit; J96.01 Acute respiratory failure with hypoxia; J18.9 Pneumonia, unspecified organism; F03.918 Unspecified dementia, unspecified severity, with other behavioral disturbance; N17.9 Acute kidney failure, unspecified; E87.0 Hyperosmolality and hypernatremia; D32.9 Benign neoplasm of meninges, unspecified; G62.9 Polyneuropathy, unspecified; K20.90 Esophagitis, unspecified without bleeding; E78.5 Hyperlipidemia, unspecified; R29.707 NIHSS score 7; Z66 Do not resuscitate
CPT/HCPCS: 36415; 36600; 70450; 70496; 70498; 70553; 71045; 71260; 74177; 80053; 81001; 82140; 82565; 82607; 82746; 82805; 82948; 83036; 83605; 83690; 83735; 83880; 84295; 84443; 84460; 84484; 85025; 85610; 86140; 87040; 87086; 87636; 92610; 93005; 94002; 94640; 96361; 96375; 97161; 99285; A9270; A9577; J0248; J0696; J1100; J1650; J1815; J1940; J2060; J2270; J2543; J2930; J7030; J7070; J7120; Q9967